=== PATIENT | male | born 1955 | race Caucasian/White ===

== ENCOUNTER → 2016-07-16 | Outpatient (CLI) | payer BC ==
[2016-07-16 09:57] LABS: APPEARANCE,URINE CLEAR; BILIRUBIN,URINE NEGATIVE (NEGATIVE); GLUCOSE, URINE NEGATIVE (NEGATIVE); KETONES,URINE TRACE mg/dL (NEGATIVE); LEUKOCYTE ESTERASE,URINE NEGATIVE (NEGATIVE); NITRITE,URINE NEGATIVE (NEGATIVE); PROTEIN,URINE NEGATIVE (NEGATIVE); URINE SPECIFIC GRAVITY 1.013; UROBILINOGEN,URINE NEGATIVE mg/dL (<2.0)
[2016-07-16 09:59] LABS: ABSOLUTE BASOPHILS # (AUTO) 0.2 10^3/uL (0.0-0.2); ABSOLUTE EOSINOPHILS # (AUTO) 0.3 10^3/uL (0.0-0.6); ABSOLUTE LYMPHOCYTES (AUTO) 2.1 10^3/uL (0.5-4.7); ABSOLUTE MONOCYTES (AUTO) 0.9 10^3/uL (0.1-1.4); ABSOLUTE NEUT (AUTO) 4.1 10^3/uL (1.7-8.2); EOSINOPHILS % (AUTO) 4.4 % (0-6); HEMATOCRIT 45.3 % (37.9-51.0); HEMOGLOBIN 14.9 g/dL (13.5-17.0); HGB HCT DIFFERENCE -0.6; LYMPHOCYTES % (AUTO) 27.2 % (13-45); MEAN CORPUSCULAR HEMOGLOBIN 30.5 pg (27.0-33.4); MEAN CORPUSCULAR VOLUME 93 fl (80-97); MONOCYTES % (AUTO) 12.1 % (3-13); RED CELL DISTRIBUTION WIDTH 13.3 % (11.5-14.0); SEGMENTED NEUTROPHILS % (AUTO) 54.3 % (42-78); WHITE BLOOD COUNT 7.6 10^3/uL (4.0-10.5)
[2016-07-16 10:25] LABS: ALANINE AMINOTRANSFERASE 41 U/L (21-72); ALBUMIN 4.4 g/dL (3.5-5.0); ALKALINE PHOSPHATASE 71 U/L (38-126); ANION GAP 11 (5-19); ASPARTATE AMINO TRANSFERASE 26 U/L (17-59); BILIRUBIN,TOTAL 0.5 mg/dL (0.2-1.3); BLOOD UREA NITROGEN 17 mg/dL (7-20); CALCIUM 9.7 mg/dL (8.4-10.2); CARBON DIOXIDE 27 mmol/L (22-30); CHLORIDE 104 mmol/L (98-107); CHOLESTEROL 212.62 mg/dL (0-200); CREATININE RESULT 0.83 mg/dL (0.52-1.25); Direct HDL 51 mg/dL (>40); GLUCOSE 113 mg/dL (75-110); POTASSIUM 5.1 mmol/L (3.6-5.0); SODIUM 141.9 mmol/L (137-145); TOTAL PROTEIN 7.2 g/dL (6.3-8.2); TRIGLYCERIDES 109 mg/dL (<150)
[2016-07-16 10:36] LABS: DIRECT LDL 146 mg/dL (<100); ERYTHROCYTE SEDIMENTATION RATE 13 mm/hr (0-20)
[2016-07-16 10:37] LABS: PROTHROMBIN TIME 12.3 SEC (11.4-15.4)
== END ==
LOC: OD 08:50
DX: R06.02 Shortness of breath (principal); F17.219 Nicotine dependence, cigarettes, with unspecified nicotine-induced disorders; F17.210 Nicotine dependence, cigarettes, uncomplicated; F04 Amnestic disorder due to known physiological condition; Z79.899 Other long term (current) drug therapy; R53.83 Other fatigue
CPT/HCPCS: 36415; 71020; 80053; 80061; 81001; 82607; 83036; 84153; 84425; 84443; 85025; 85610; 85652; 86038; 86592; 86787

== ENCOUNTER → 2018-10-02 | Outpatient (CLI) | payer BC ==
[2018-10-02 08:28] LABS: HEMATOCRIT 40.4 % (37.9-51.0); HEMOGLOBIN 13.5 g/dL (13.5-17.0); MEAN CORPUSCULAR HEMOGLOBIN 29.3 pg (27.0-33.4); MEAN CORPUSCULAR HGB CONC 33.4 g/dL (32.0-36.0); MEAN CORPUSCULAR VOLUME 88 fl (80-97); PLATELET COUNT 531 10^3/uL (150-450); RED BLOOD COUNT 4.61 10^6/uL (4.35-5.55); RED CELL DISTRIBUTION WIDTH 14.5 % (11.5-14.0)
[2018-10-02 08:38] LABS: ALANINE AMINOTRANSFERASE 42 U/L (21-72); ALBUMIN 4.3 g/dL (3.5-5.0); ALKALINE PHOSPHATASE 153 U/L (38-126); ANION GAP 11 (5-19); ASPARTATE AMINO TRANSFERASE 29 U/L (17-59); BILIRUBIN,DIRECT 0.3 mg/dL (0.0-0.4); BILIRUBIN,TOTAL 0.4 mg/dL (0.2-1.3); BLOOD UREA NITROGEN 13 mg/dL (7-20); CALCIUM 10.5 mg/dL (8.4-10.2); CARBON DIOXIDE 25 mmol/L (22-30); CHLORIDE 103 mmol/L (98-107); GLUCOSE 119 mg/dL (75-110); POTASSIUM 4.6 mmol/L (3.6-5.0); SODIUM 139.4 mmol/L (137-145); TOTAL PROTEIN 7.8 g/dL (6.3-8.2)
== END ==
LOC: OD 07:38
PROVIDERS: ATTEND Internal Medicine
DX: N39.0 Urinary tract infection, site not specified (principal); D64.9 Anemia, unspecified; R10.9 Unspecified abdominal pain
CPT/HCPCS: 36415; 80053; 85027; 87086

== ENCOUNTER → 2018-10-04 | Outpatient (CLI) | payer BC ==
--- NOTE | 2018-10-04 11:34 | RADIOLOGY REPORT (SQ) ---
EXAM DESCRIPTION: CT ABD/PELVIS NO ORAL OR IV COMPLETED DATE/TIME: 10/04/2018 10:06 am REASON FOR STUDY: RENAL STONE PROTOCOL. KIDNEY STONES (N20.0) N20.0 CALCULUS OF KIDNEY COMPARISON: None. TECHNIQUE: CT scan of the abdomen and pelvis performed without intravenous or oral contrast. Images reviewed with lung, soft tissue, and bone windows. Reconstructed coronal and sagittal MPR images revi ewed. All images stored on PACS. All CT scanners at this facility use dose modulation, iterative reconstruction, and/or weight based d osing when appropriate to reduce radiation dose to as low as reasonably achievable (ALARA). [facility]: Dose Right [facility]: CareDose [facility]: Dose Right [facility]: Teradose 4D [facility]: [employer] RADIATION DOSE: CT Rad equipment meets quality standard of care and radiation dose reduction techniq ues were employed. CTDIvol: 8.9 mGy. DLP: 472 mGy-cm.mGy. LIMITATIONS: None. FINDINGS: LOWER CHEST: Several pulmonary nodules in the right lower lung, the largest about 6 mm sarah ge 2. NON-CONTRASTED LIVER, SPLEEN, ADRENALS: Evaluation limited by lack of IV contrast. No identified sign ificant masses. PANCREAS: No masses. No peripancreatic inflammatory changes. GALLBLADDER: No identified stones by CT criteria. No inflammatory changes to suggest cholecystitis. RIGHT KIDNEY AND URETER: No suspicious masses. Assessment limited by lack of IV contrast. No signif icant calcifications. No hydronephrosis or hydroureter. LEFT KIDNEY AND URETER: No suspicious masses. Assessment limited by lack of IV contrast. No signifi cant calcifications. No hydronephrosis or hydroureter. AORTA AND RETROPERITONEUM: No aneurysm. No retroperitoneal masses or adenopathy. BOWEL AND PERITONEAL CAVITY: No obvious masses or inflammatory changes. No free fluid. APPENDIX: Normal. PELVIS, BLADDER, AND ABDOMINAL WALL:No abnormal masses. No free fluid. Bladder normal. BONES: No significant findings. OTHER: No other significant finding. IMPRESSION: 1. No acute findings in the abdomen or pelvis. 2. Incidental pulmonary nodules. Dedicated chest CT follow-up is recommended. COMMENT: Quality ID # 436: Final reports with documentation of one or more dose reduction techniques (e.g., Automated exposure control, adjustment of the mA and/or kV according to patient size, use of iterative reconstruction technique) TECHNICAL DOCUMENTATION: JOB ID: [id number] [employer]- All Rights Reserved Reading location - IP/workstation name: [email or web address]
== END ==
LOC: RAD 09:32
PROVIDERS: ATTEND Internal Medicine
DX: N20.0 Calculus of kidney (principal); R91.8 Other nonspecific abnormal finding of lung field
CPT/HCPCS: 74176

== ENCOUNTER 2018-10-12 09:04 | Day surgery (SDC) | payer BC ==
[2018-10-12 10:24] LABS: HEMATOCRIT 38.8 % (37.9-51.0); HEMOGLOBIN 12.7 g/dL (13.5-17.0); MEAN CORPUSCULAR HEMOGLOBIN 28.7 pg (27.0-33.4); MEAN CORPUSCULAR HGB CONC 32.7 g/dL (32.0-36.0); MEAN CORPUSCULAR VOLUME 88 fl (80-97); PLATELET COUNT 547 10^3/uL (150-450); RED BLOOD COUNT 4.43 10^6/uL (4.35-5.55); RED CELL DISTRIBUTION WIDTH 14.5 % (11.5-14.0); WHITE BLOOD COUNT 26.8 10^3/uL (4.0-10.5)
[2018-10-12 10:30] LABS: INTERNATIONAL RATION (INR) 0.96; PROTHROMBIN TIME 13.3 SEC (11.4-15.4)
[2018-10-12 10:31] LABS: PARTIAL THROMBOPLASTIN TIME 30.6 SEC (23.5-35.8)
[2018-10-12 10:49] LABS: BLOOD UREA NITROGEN 11 mg/dL (7-20)
[2018-10-12 11:30] LABS: ABSOLUTE LYMPHOCYTES# (MANUAL) 1.6 10^3/uL (0.5-4.7); ABSOLUTE MONOCYTES # (MANUAL) 0.5 10^3/uL (0.1-1.4); ABSOLUTE NEUTROPHILS# (MANUAL) 23.6 10^3/uL (1.7-8.2); BASOPHILS % (MANUAL) 0 % (0-2); EOSINOPHILS % (MANUAL) 4 % (0-6); LYMPHOCYTES % (MANUAL) 6 % (13-45); MONOCYTES % (MANUAL) 2 % (3-13); SEGMENTED NEUTROPHILS % (MAN) 88 % (42-78); TOTAL CELLS COUNTED 100
[2018-10-12 11:35] LABS: ANISOCYTOSIS SLIGHT
[2018-10-12 11:38] LABS: PLATELET COMMENT INCREASED
[2018-10-12] MEDS ORDERED: MIDAZOLAM 2 MG/2 ML INJ ONE (11:48)
[2018-10-12] MEDS ORDERED: FENTANYL CITRATE INJ/PF 100 MCG/2 ML AMPUL ONE (11:49)
--- NOTE | 2018-10-12 13:08 | RADIOLOGY REPORT (SQ) ---
EXAM DESCRIPTION: CHEST SINGLE VIEW COMPLETED DATE/TIME: 10/12/2018 12:48 pm REASON FOR STUDY: LUNG CA - POST BIOPSY COMPARISON: Chest CT 10/12/2018 EXAM PARAMETERS: NUMBER OF VIEWS: One view. TECHNIQUE: Single frontal radiographic view of the chest acquired. RADIATION DOSE: NA LIMITATIONS: None. FINDINGS: LUNGS AND PLEURA: Short interval stability re- right upper lobe mass. No large pleural ef fusion. No pneumothorax. MEDIASTINUM AND HILAR STRUCTURES: Stable prominence of the superior mediastinum. HEART AND VASCULAR STRUCTURES: Heart normal in size. Normal vasculature. BONES: No acute findings. HARDWARE: None in the chest. OTHER: No other significant finding. IMPRESSION: No evidence of pneumothorax status post pulmonary biopsy. Stable radiographic appearanc e of the chest. TECHNICAL DOCUMENTATION: JOB ID: [id number] [employer]- All Rights Reserved Reading location - IP/workstation name: [email or web address]
--- NOTE | 2018-10-12 13:08 | RADIOLOGY REPORT (SQ) ---
EXAM DESCRIPTION: CT BIOPSY LUNG/MEDIASTINUM; CT NEEDLE PLACEMENT COMPLETED DATE/TIME: 10/12/2018 12:44 pm; 10/12/2018 12:43 pm REASON FOR STUDY: LUNG CANCER; LUNG CANCER, LUNG BIOPSY C34.11 MALIGNANT NEOPLASM OF UPPER LOBE, RI GHT BRONCHUS OR L COMPARISON: CT chest with IV contrast 10/12/2018 TECHNIQUE: CT guided biopsy of the right upper lobe lung mass performed with conscious sedation. CT Fluoroscopy Time: 4.[address] scanners at this facility use dose modulation, iterative reconstruction, and/or weight based d osing when appropriate to reduce radiation dose to as low as reasonably achievable (ALARA). [facility]: Dose Right [facility]: CareDose [facility]: Dose Right [facility]: Teradose 4D [facility]: [employer] RADIATION DOSE: mGy. FINDINGS: After obtaining informed consent and explaining the risks and benefits of conscious sedati on,the patient agreed to the procedure. Prior to the procedure, a time out was performed to verify th e patient's identity and planned procedure. IV sedation was administered and physician direction by the registered nurse using 1 milligrams of Ve rsed and 75 micrograms of fentanyl, for conscious sedation. Physiologic monitoring was provided befor e, during, and after sedation. The total sedation time was 30 minutes. Documentation face to face time, the performing proceduralist, spent monitoring the patient: [address] scanning was performed to localize the percutaneous site for the biopsy approach. After sterile skin prep and local lidocaine for skin and deep tissue anesthesia, a coaxial biopsy nee dle was used to obtain multiple cores of tissue. Postprocedure limited chest CT demonstrated trace pl eural space air along the lateral edge of the lung nodule which was asymptomatic. Vital signs stable . The biopsy tissue was submitted to the lab in formalin. There were no immediate complications. Pathology is pending at the time of dictation. IMPRESSION: CT GUIDED BIOPSY OF THE LARGE RIGHT UPPER LOBE MASS PERFORMED, PATHOLOGY PENDING. CT FLUOROSCOPY IV CONSCIOUS SEDATION COMMENT: Quality ID 145: Final reports for procedures using fluoroscopy that document radiation exp osure indices, or exposure time and number of fluorographic images (if radiation exposure indices are not available) Patient medication list reviewed: Yes- Quality ID# [id number]:Eligible professional attests to documenting i n the medical record they obtained, updated, or reviewed the patient's current medications.. TECHNICAL DOCUMENTATION: JOB ID: [id number] Quality ID# 436: Final reports with documentation of one or more dose reduction techniques (e.g., Aut omated exposure control, adjustment of the mA and/or kV according to patient size, use of iterative r econstruction technique) 2010 [employer]- All Rights Reserved Reading location - IP/workstation name: [email or web address]
[2018-10-12 15:25] VITALS: BP 148/88
--- NOTE | 2018-10-12 15:30 | RADIOLOGY REPORT (SQ) ---
EXAM DESCRIPTION: CT CHEST WITH COMPLETED DATE/TIME: 10/12/2018 12:06 pm REASON FOR STUDY: LUNG CANCER C34.11 MALIGNANT NEOPLASM OF UPPER LOBE, RIGHT BRONCHUS OR L COMPARISON: None. TECHNIQUE: CT scan of the chest performed using helical scanning technique with dynamic intravenous contrast injection. Images reviewed with lung, soft tissue and bone windows. Reconstructed coronal and sagittal MPR and MIP images reviewed. All images stored on PACS. All CT scanners at this facility use dose modulation, iterative reconstruction, and/or weight based d osing when appropriate to reduce radiation dose to as low as reasonably achievable (ALARA). [facility]: Dose Right [facility]: CareDose [facility]: Dose Right [facility]: Teradose 4D [facility]: [employer] CONTRAST TYPE AND DOSE: contrast/concentration: Isovue 350.00 mg/ml; Total Contrast Delivered: 80.0 ml; Total Saline Delivered: 55.0 ml RENAL FUNCTION: BUN 11 creatinine 0.62 RADIATION DOSE: CT Rad equipment meets quality standard of care and radiation dose reduction techniq ues were employed. CTDIvol: 7.6 mGy. DLP: 327 mGy-cm. . LIMITATIONS: None. FINDINGS: LUNGS AND PLEURA: Small right pleural effusion. 54 mm mass that is adjacent to the pleura l surface in the right upper lobe. 8 mm pulmonary mass on image 83 in the right lung. HILAR AND MEDIASTINAL STRUCTURES: Marked mediastinal adenopathy, predominantly upper mediastinal rishi opathy. Right hilar adenopathy. HEART AND VASCULAR STRUCTURES: No aneurysm or dissection. No central pulmonary emboli. No pericardi al effusion. HARDWARE: None in the chest. UPPER ABDOMEN: No significant findings. Limited exam. THYROID AND OTHER SOFT TISSUES: 2 cm low-density lesion in the right lobe of the thyroid. BONES: Lytic lesion in the posterolateral aspect of the T9 vertebra. There is also involvement of th e right lamina and right transverse process at T9. There is masslike density that extends into the t horacic spinal canal and is extra spinal. There is a smaller low-density lesion in the T12 vertebral body on the right. This may represent a hemangioma. OTHER: No other significant finding. IMPRESSION: Large right pulmonary mass with a smaller lesion and with extensive upper mediastinal ad enopathy and right hilar adenopathy. There is metastatic disease involving the T9 vertebral body and posterior elements on the right. TECHNICAL DOCUMENTATION: JOB ID: [id number] Quality ID # 436: Final reports with documentation of one or more dose reduction techniques (e.g., Au tomated exposure control, adjustment of the mA and/or kV according to patient size, use of iterative reconstruction technique) 2010 [employer]- All Rights Reserved Reading location - IP/workstation name: [email or web address]
--- NOTE | 2018-10-12 15:56 | RADIOLOGY REPORT (SQ) ---
EXAM DESCRIPTION: CHEST SINGLE VIEW COMPLETED DATE/TIME: 10/12/2018 3:02 pm REASON FOR STUDY: LUNG CA - POST BIOPSY (2 HR FILM) COMPARISON: CT Lung biopsy, 10/12/2018 EXAM PARAMETERS: NUMBER OF VIEWS: One view. TECHNIQUE: Single frontal radiographic view of the chest acquired. RADIATION DOSE: NA LIMITATIONS: None. FINDINGS: LUNGS AND PLEURA: No pneumothorax post right lung biopsy 2 hours post procedure. Stable right upper lobe mass. No acute infiltrates pleural effusions or pneumothorax. MEDIASTINUM AND HILAR STRUCTURES: Stable right paratracheal adenopathy HEART AND VASCULAR STRUCTURES: Heart normal in size. Normal vasculature. BONES: No acute findings. HARDWARE: None in the chest. OTHER: No other significant finding. IMPRESSION: No pneumothorax post right lung biopsy. TECHNICAL DOCUMENTATION: JOB ID: [id number] [employer]- All Rights Reserved Reading location - IP/workstation name: [email or web address]
== END 2018-10-12 15:00 | disposition home or self-care (01) ==
LOC: RAD 09:04 → EDSTATUS 09:45 → RAD 15:00
PROVIDERS: ATTEND Internal Medicine
DX: C34.11 Malignant neoplasm of upper lobe, right bronchus or lung (principal); C79.9 Secondary malignant neoplasm of unspecified site; C79.51 Secondary malignant neoplasm of bone
CPT/HCPCS: 36415; 84520; 82565; 85025; 85610; 85730; 88342 ×2; 88341 ×2; 88305 ×2; 71045; 71260; 77012; 32405; J2250; J3010

== ENCOUNTER 2018-11-08 11:37 | Inpatient (IN) | payer BC ==
[2018-11-08] MEDS ORDERED: DEXAMETHASONE SOD PHOS INJ 10 MG/1 ML VIAL IV ONE (13:06)
[2018-11-08 13:26] LABS: AMORPHOUS SEDIMENT,URINE TRACE /HPF; APPEARANCE,URINE SLIGHTLY-CLOUDY; BILIRUBIN,URINE NEGATIVE (NEGATIVE); COLOR,URINE YELLOW; GLUCOSE, URINE NEGATIVE (NEGATIVE); KETONES,URINE NEGATIVE (NEGATIVE); LEUKOCYTE ESTERASE,URINE NEGATIVE (NEGATIVE); NITRITE,URINE NEGATIVE (NEGATIVE); PROTEIN,URINE NEGATIVE (NEGATIVE); URINE SPECIFIC GRAVITY 1.017; UROBILINOGEN,URINE NEGATIVE mg/dL (<2.0)
[2018-11-08 15:33] LABS: INTERNATIONAL RATION (INR) 0.97; PARTIAL THROMBOPLASTIN TIME 27.1 SEC (23.5-35.8); PROTHROMBIN TIME 13.4 SEC (11.4-15.4)
[2018-11-08 15:35] LABS: HEMATOCRIT 42.4 % (37.9-51.0); HEMOGLOBIN 13.7 g/dL (13.5-17.0); MEAN CORPUSCULAR HEMOGLOBIN 28.4 pg (27.0-33.4); MEAN CORPUSCULAR HGB CONC 32.4 g/dL (32.0-36.0); MEAN CORPUSCULAR VOLUME 88 fl (80-97); PLATELET COUNT 525 10^3/uL (150-450); RED BLOOD COUNT 4.84 10^6/uL (4.35-5.55); RED CELL DISTRIBUTION WIDTH 15.1 % (11.5-14.0)
[2018-11-08 15:48] LABS: ALANINE AMINOTRANSFERASE 61 U/L (21-72); ALBUMIN 4.1 g/dL (3.5-5.0); ALKALINE PHOSPHATASE 245 U/L (38-126); ANION GAP 14 (5-19); ASPARTATE AMINO TRANSFERASE 28 U/L (17-59); BILIRUBIN,DIRECT 0.3 mg/dL (0.0-0.4); BILIRUBIN,TOTAL 0.6 mg/dL (0.2-1.3); BLOOD UREA NITROGEN 26 mg/dL (7-20); CALCIUM 11.6 mg/dL (8.4-10.2); CARBON DIOXIDE 28 mmol/L (22-30); CHLORIDE 98 mmol/L (98-107); GLUCOSE 121 mg/dL (75-110); POTASSIUM 4.3 mmol/L (3.6-5.0); SODIUM 140.3 mmol/L (137-145); TOTAL PROTEIN 7.6 g/dL (6.3-8.2)
[2018-11-08 16:22] LABS: ABSOLUTE LYMPHOCYTES# (MANUAL) 2.8 10^3/uL (0.5-4.7); ABSOLUTE MONOCYTES # (MANUAL) 3.3 10^3/uL (0.1-1.4); ABSOLUTE NEUTROPHILS# (MANUAL) 49.1 10^3/uL (1.7-8.2); BASOPHILS % (MANUAL) 0 % (0-2); EOSINOPHILS % (MANUAL) 0 % (0-6); LYMPHOCYTES % (MANUAL) 5 % (13-45); MONOCYTES % (MANUAL) 6 % (3-13); SEGMENTED NEUTROPHILS % (MAN) 89 % (42-78); TOTAL CELLS COUNTED 100
[2018-11-08 16:23] LABS: ANISOCYTOSIS SLIGHT; PLATELET CLUMPS PRESENT; PLATELET COMMENT ADEQUATE; TOXIC GRANULATION 2+; TOXIC VACUOLATION PRESENT
[2018-11-08 16:26] LABS: WHITE BLOOD COUNT 55.2 10^3/uL (4.0-10.5)
[2018-11-08] MEDS ORDERED: NORMAL SALINE 1000 ML 1,000 ML IV ONE (17:33)
--- NOTE | 2018-11-08 17:42 | ER Document Report ---
ED General - General Chief Complaint: Weakness Stated Complaint: WEAKNESS Time Seen by Provider: 11/08/18 12:38 TRAVEL OUTSIDE OF THE [place] IN LAST 30 DAYS: No - HPI Notes: Patient is a 63-year-old gentleman who presents to the emergency department for evaluation. Over the last 3 days he is developed decreased sensation and movement in his legs. He has a history of bronchogenic carcinoma, with metasta sis and epidural tumor noted from T8-T10. He states that over the last several days has been able to walk. He also states he is been having difficulty urinating. He is supposed to have radiation, but unfortunately our radiation facilities are down. He has been on high-dose steroids for the last several days. - Related Data Allergies/Adverse Reactions: No Known Allergies Allergy (Unverified 10/12/18 09:23) Past Medical History - General Information source: Patient - Social History Smoking Status: Former Smoker Family History: Reviewed & Not Pertinent - Past Medical History Cardiac Medical History: Denies: Hx Coronary Artery Disease, Hx Heart Attack, Hx Hypertension Pulmonary Medical History: Denies: Hx Asthma, Hx Bronchitis, Hx COPD, Hx Pneumonia Neurological Medical History: Denies: Hx Cerebrovascular Accident, Hx Seizures Musculoskeletal Medical History: Denies Hx Arthritis Review of Systems - Review of Systems EENT: No symptoms reported Cardiovascular: No symptoms reported Respiratory: No symptoms reported Gastrointestinal: No symptoms reported Genitourinary: No symptoms reported Musculoskeletal: See HPI Skin: No symptoms reported Neurological/Psychological: No symptoms reported Physical Exam - Vital signs Vitals: Temp 98.2 F 11/08/18 11:40 - Notes Notes: 63-year-old male, appears stated age in no acute distress. Vital signs reviewed, please refer to chart. Head is normocephalic, atraumatic. Pupils equal round, reactive to light. Neck is supple without meningismus. Heart is regular rate and rhythm. Lungs are clear to auscultation bilaterally. Abdomen is soft, nontender, normoactive bowel sounds throughout. Extremities without cyanosis, clubbing. Posterior calves are nontender. Peripheral pulses are equal. Skin is warm and dry. Patient is awake and alert, oriented x3. No gross facial asymmetry. Drink this +5-5 bilateral upper extremities with good sensation. Examination of the lower extremities reveals no obvious deformity. Patient intermittently has what appear to be spasms of the left leg. He has no voluntary motion at all of the left leg. He does have limited flexion and extension at the hip, knee, ankle on the right lower extremity. He has diminished sensation from the knee down on the right lower extremity. He has diminished sensation throughout the entire left leg to light touch. Patellar reflexes are diminished on the left, +2 on the right. Achilles reflexes are +1 bilaterally. Dorsalis pedis pulses 2+. Course - Re-evaluation Re-evalutation: 11/08/18 17:39 Patient presents emergency department for evaluation. 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 He has had progressive weakness of his lower extremities, as well as paresthesias. He requires radiation to shrink this tumor. Unfortunately our facilities for radiation oncology are down at this time. We do not have any prospects of them returning soon. I obtained laboratory investigations. The patient does have a marked leukocytosis. He has been on high-dose steroids. I did verify with this patient's oncologist that he is in fact not on Neupogen. Chest x-ray and blood cultures were obtained. Urinalysis is been unremarkable. The patient's was noted to have urinary retention, Salomon catheter was placed. I spoke with , panel builder at [facility]. The patient had been there recently. Unfortunately they do not have any beds, but he did accept the patient for radiation and further care. I did notify Dr. Casas of these findings, who states that the patient will require radiation, he believes that waiting for transfer is the most appropriate thing at this time. He does agree with obtaining cultures and imaging to verify there is not an infectious source of this patient's leukocytosis. 11/09/18 12:52 Please see addendum and providers note. In short radiation oncology facilities became available here today. Patient developed cough overnight. Given his leukocytosis, elevated heart rate, I am concerned about the possibility of hospital-acquired pneumonia. He was treated with cefepime and vancomycin. He was sent for radiation oncology. I spoke with Dr. Casas as well as Dr. Loaiza, the patient will be admitted for further care. - Vital Signs Vital signs: Temp Pulse Resp BP Pulse Ox 97.9 F 23 H 142/96 H 95 11/09/18 08:29 11/09/18 11:00 11/09/18 09:01 11/09/18 11:00 - Laboratory Result Diagrams: 11/08/18 15:05 11/08/18 15:05 Laboratory results interpreted by me: 11/08/18 11/08/18 11/08/18 11:50 15:05 15:05 WBC 55.2 H* RDW 15.1 H Plt Count 525 H Seg Neuts % (Manual) 89 H Lymphocytes % (Manual) 5 L Abs Neuts (Manual) 49.1 H Abs Monocytes (Manual) 3.3 H BUN 26 H Glucose 121 H Calcium 11.6 H Alkaline Phosphatase 245 H Urine Ascorbic Acid 20 H - Diagnostic Test Radiology reviewed: Reports reviewed Discharge - Discharge Clinical Impression: Bilateral leg weakness, Stage IV squamous cell carcinoma of lung, 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
--- NOTE | 2018-11-08 18:03 | RADIOLOGY REPORT (SQ) ---
EXAM DESCRIPTION: CHEST SINGLE VIEW COMPLETED DATE/TIME: 11/08/2018 5:56 pm REASON FOR STUDY: leukocytosis COMPARISON: 10/12/2018 EXAM PARAMETERS: NUMBER OF VIEWS: One view. TECHNIQUE: Single frontal radiographic view of the chest acquired. RADIATION DOSE: NA LIMITATIONS: None. FINDINGS: LUNGS AND PLEURA: Right lung mass and right paratracheal adenopathy stable. Left lung is clear. MEDIASTINUM AND HILAR STRUCTURES: No masses. Contour normal. HEART AND VASCULAR STRUCTURES: Heart normal in size. Normal vasculature. BONES: No acute findings. HARDWARE: None in the chest. OTHER: No other significant finding. IMPRESSION: Stable masses. No acute findings in the chest. TECHNICAL DOCUMENTATION: JOB ID: [id number] [employer]- All Rights Reserved Reading location - IP/workstation name: [email or web address]
[2018-11-09] MEDS ORDERED: LORAZEPAM INJ 2 MG/1 ML VIAL IV ONE (00:56)
[2018-11-09] MEDS ORDERED: HALOPERIDOL LACTATE INJ 5 MG/1 ML VIAL IM ONE (03:29)
--- NOTE | 2018-11-09 03:43 | ER Document Report ---
Doctor's Note Notes: 11/09/18 03:41 Patient became acutely agitated. He has ripped out 3 IVs total. 0.5 mg of Ativan was given without improvement. Patient given Haldol 2 mg IM. Patient now attempting to rip out his Salomon catheter. Soft restraints will be placed.
[2018-11-09] MEDS ORDERED: CEFEPIME 2 GM/D5W RTU 2 GM/50 ML RTUPB IV ONE (09:19)
[2018-11-09] MEDS ORDERED: VANCOMYCIN HCL INJ 1000 MG VIAL IV ONE (09:19)
--- NOTE | 2018-11-09 09:23 | ER Document Report ---
Doctor's Note Notes: 11/09/18 09:21 Patient seen and examined. I reviewed vital signs and charting from overnight. The patient was intermittently confused throughout the night. He was disoriented to person, place, and time. His heart rate remained elevated despite some IV fluids and taking in adequate p.o. The patient this morning denies any pain. He developed a cough overnight that was not present yesterday. This was verified with the , who states that he was not coughing until overnight. Physical exam reveals a frail-appearing 63-year-old male in no acute distress. He has rhonchorous cough. Head is normal cephalic and atraumatic. Pupils are equal and round, reactive to light. No nuchal rigidity. Heart is regular rate and rhythm, breath sounds are coarse but no wheezes, rales, rhonchi noted. Patient continues to have profound weakness to the bilateral lower extremities, patellar and Achilles reflexes are nearly absent at this point. Sensation continues to be diminished in the right lower extremity inferior to the knee. He does continue to have pressure sensation in the entire left lower extremity. Assessment: Despite a normal chest x-ray yesterday, I am concerned about the possibility of hospital-acquired pneumonia in this patient. He was recently hospitalized and violent. His white count is markedly up, cultures remain negative at this time. Secondary to his development of this new symptoms, we will go ahead and treat with cefepime and vancomycin. Lack of objective x-ray findings were explained to the patient's . She is in agreement with treatment. We are still awaiting transfer divided. Unfortunately I am notified that radiation facilities are still down here. We will continue to follow. 11/09/18 12:51 I was contacted by radiation oncology, notified that we were capable of radiation at this time. I spoke to the radiation oncologist, the patient was scanned and set up for radiation later on today. He continues to be mildly tachycardic. My concern is still hospital-acquired pneumonia. I spoke with Dr. Casas, who agrees that inpatient care is indicated at this time. I spoke with Dr. Loaiza, who happily excepted the patient.
[2018-11-09] MEDS ORDERED: DEXAMETHASONE SOD PHOS INJ 10 MG/1 ML VIAL IV ONE (12:45)
[2018-11-09 14:34] LABS: PATH REVIEW PATHOLOGIST REVIEWED
[2018-11-09] MEDS ORDERED: MAG HYDROX/AL HYDROX/SIMETH SUSP 30 ML UDCUP PO PRN (14:52)
[2018-11-09] MEDS ORDERED: ONDANSETRON HCL INJ/PF 4 MG/2 ML SDV IV PRN (14:52)
[2018-11-09] MEDS ORDERED: ONDANSETRON 4 MG TAB.RAPDIS PO PRN (14:52)
[2018-11-09] MEDS ORDERED: MAGNESIUM HYDROXIDE SUSP 30 ML UDCUP PO PRN (14:52)
[2018-11-09] MEDS ORDERED: IPRATROPIUM/ALBUTEROL 0.5-2.5 MG/3 ML AMPUL NEB PRN (14:52)
[2018-11-09] MEDS ORDERED: PROMETHAZINE HCL INJ 25 MG/1 ML VIAL IV PRN (15:05)
[2018-11-09] MEDS ORDERED: PROMETHAZINE HCL 25 MG TABLET PO PRN (15:05)
[2018-11-09] MEDS ORDERED: GUAIFENESIN/D-METHORPHAN (200-20 MG) SYRUP 10 ML PO PRN (15:07)
[2018-11-09] MEDS ORDERED: BISACODYL 10 MG SUPP.RECT PR PRN (15:09)
[2018-11-09] MEDS ORDERED: VANCOMYCIN HCL 0 MG in DEXTROSE 5%-WATER 250 ML IV NR (15:15)
[2018-11-09] MEDS: DOCUSATE SODIUM 100 MG CAPSULE PO SCH (17:53)
[2018-11-09] MEDS: TAMSULOSIN HCL 0.4 MG CAP.SR.24H PO SCH (17:53)
[2018-11-09] MEDS: FENTANYL 50 MCG/HR PATCH.TD72 TD SCH (17:53)
[2018-11-09] MEDS: DRONABINOL 2.5 MG CAPSULE PO SCH (17:53)
--- NOTE | 2018-11-09 18:07 | PDOC H&P ---
History of Present Illness Admission Date/PCP: 11/09/18 12:59 Patient complains of: Congested cough with dyspnea. Underlying metastatic lung and bone cancer with cord compression and inability to ambulate History of Present Illness: LUANN NORTON JR is a 63 year old male Past Medical History Cardiac Medical History: Denies: Coronary Artery Disease, Myocardial Infarction, Hypertension Pulmonary Medical History: Denies: Asthma, Bronchitis, Chronic Obstructive Pulmonary Disease (COPD), P neumonia Neurological Medical History: Denies: Seizures Renal/ Medical History: Reports: Other - Prostatic hypertrophy with obstructive urinary symptoms Malignancy Medical History: Reports: Bone Cancer, Lung Cancer Musculoskeltal Medical History: Denies: Arthritis Psychiatric Medical History: Denies: Alcohol Dependency, Substance Abuse, Tobacco Dependency Traumatic Medical History: Reports: None Hematology: Denies: Anemia Infectious Medical History: Reports: None Past Surgical History Past Surgical History: Reports: Other - Tumor biopsies Social History Information Source: Patient, Relative, [facility] Records Lives with: Spouse/Significant other Smoking Status: Former Smoker Frequency of Alcohol Use: None Hx Recreational Drug Use: No Hx Prescription Drug Abuse: No - Advance Directive Resuscitation Status: Full Code Surrogate healthcare decision maker:: No formal documentation in place. We did discuss the fact that as his , by law she would be the first line decision maker. I will discuss the possibility of completing a healthcare proxy document during this admission. Family History Family History: Malignancy, Other - [id number] cirrhosis Parental Family History Reviewed: Yes Children Family History Reviewed: Yes Sibling(s) Family History Reviewed.: Yes Medication/Allergy Home Medications: Dexamethasone [Decadron 4 Mg Tablet] 4 mg PO TID 11/09/18 Dronabinol 5 mg PO BID 11/09/18 Fentanyl [Duragesic 50 Mcg/Hr Transdermal Patch] 1 each TD Q3D 11/09/18 Hydromorphone HCl [Dilaudid] 4 mg PO Q6HP PRN 11/09/18 Ibuprofen [Motrin 800 mg Tablet] 800 mg PO DAILYP PRN 11/09/18 Lidocaine [Ztlido] 1 each TP DAILY 11/09/18 Multivitamin [Tab-A-Judith (Multiple Vitamin) Tablet] 1 tab PO DAILY 11/09/18 Tamsulosin HCl [Flomax 0.4 mg Cap.sr] 0.4 mg PO DAILY 05/30/19 Allergies/Adverse Reactions: No Known Allergies Allergy (Unverified 10/12/18 09:23) Review of Systems Constitutional: PRESENT: anorexia, fatigue, weakness. ABSENT: headache(s), night sweats Eyes: ABSENT: visual disturbances Ears: ABSENT: hearing changes Nose, Mouth, and Throat: ABSENT: mouth pain, sore throat Cardiovascular: ABSENT: chest pain, edema, palpitations Respiratory: PRESENT: cough - Very congested cough, dyspnea, sputum Gastrointestinal: PRESENT: abdominal pain, constipation - Severe. No bowel movement for approximately 10 days. Genitourinary: PRESENT: difficulty urinating - History of prostatic hypertrophy. ABSENT: dysuria Musculoskeletal: PRESENT: back pain, muscle weakness Integumentary: ABSENT: lesions, pruritus, rash Neurological: PRESENT: abnormal gait - Unable to ambulate, paresthesias, other - Dysesthesia with decreased sensation on legs. ABSENT: confusion, memory loss, syncope, tremor(s) Psychiatric: ABSENT: anxiety, depression, hallucinations Endocrine: ABSENT: cold intolerance, heat intolerance, polydipsia, polyphagia, polyuria Hematologic/Lymphatic: ABSENT: easy bleeding, easy bruising, lymphadenopathy Physical Exam Vital Signs: Temp Pulse Resp BP Pulse Ox 97.9 F 106 H 18 142/96 H 95 11/09/18 08:29 11/09/18 14:41 11/09/18 14:41 11/09/18 09:01 11/09/18 14:42 Intake & Output 11/08/18 11/09/18 11/10/18 06:59 06:59 06:59 Intake Total 1000 50 Output Total 850 1500 Balance 150 -1450 Weight 79.7 kg General appearance: PRESENT: cooperative, mild distress, well-developed Head exam: PRESENT: atraumatic, normocephalic Eye exam: PRESENT: conjunctiva pink, EOMI. ABSENT: scleral icterus Ear exam: PRESENT: normal external ear exam Mouth exam: PRESENT: dry mucosa, tongue midline Respiratory exam: PRESENT: rhonchi, symmetrical. ABSENT: accessory muscle use, rales, tachypnea, wheezes Cardiovascular exam: PRESENT: +S1, +S2, tachycardia Pulses: PRESENT: normal radial pulses, normal dorsalis pedis pul GI/Abdominal exam: PRESENT: distended - Distended but soft, soft, tenderness - Diffuse nonspecific. ABSENT: guarding Rectal exam: PRESENT: deferred Gentrourinary exam: PRESENT: indwelling catheter Extremities exam: ABSENT: calf tenderness, pedal edema Musculoskeletal exam: PRESENT: normal inspection Neurological exam: PRESENT: alert, awake, oriented to person, oriented to place, oriented to time, oriented to situation, CN II-XII grossly intact, motor sensory deficit - Patient with decreased gross sensation lower extremities versus upper extremities. Unable to elicit patellar reflexes. Despite some spontaneous movement the patient was not able to dorsiflex or plantar flex his feet during this exam. Psychiatric exam: PRESENT: flat affect. ABSENT: agitated, anxious Focused psych exam: ABSENT: delusional, restlessness Skin exam: PRESENT: dry, normal color, warm. ABSENT: mottled, rash Results Laboratory Results: 11/08/18 15:05 11/08/18 15:05 11/08/18 11/08/18 15:05 15:05 WBC 55.2 H* RBC 4.84 Hgb 13.7 Hct 42.4 MCV 88 MCH 28.4 MCHC 32.4 RDW 15.1 H Plt Count 525 H Seg Neutrophils % Not Reportable Lymphocytes % Not Reportable Monocytes % Not Reportable Eosinophils % Not Reportable Basophils % Not Reportable Absolute Neutrophils Not Reportable Absolute Lymphocytes Not Reportable Absolute Monocytes Not Reportable Absolute Eosinophils Not Reportable Absolute Basophils Not Reportable Sodium 140.3 Potassium 4.3 Chloride 98 Carbon Dioxide 28 Anion Gap 14 BUN 26 H Creatinine 0.73 Est GFR ( Amer) > 60 Est GFR (Non-Af Amer) > 60 Glucose 121 H Calcium 11.6 H Total Bilirubin 0.6 AST 28 ALT 61 Alkaline Phosphatase 245 H Total Protein 7.6 Albumin 4.1 Impressions: Chest X-Ray 11/08/18 17:35 IMPRESSION: Stable masses. No acute findings in the chest. Assessment and Plan - Diagnosis (1) Hospital-acquired pneumonia Is this a current diagnosis for this admission?: Yes Plan: 11/09/2018-the patient was recently hospitalized. I believe it was for work-up for his malignancies. For this reason he will get broad-spectrum aggressive antibiotic therapy with vancomycin and cefepime. He has a very congested cough. A sputum culture has been requested. He will have guaifenesin long-acting tablet as well as guaifenesin with dextromethorphan as needed. (2) Spinal cord compression due to malignant neoplasm metastatic to spine Is this a current diagnosis for this admission?: Yes Plan: 11/09/2018-the patient had a bone lesion that is compressing the spinal cord. This is because weakness and abnormal sensation in the patient's legs. He has some spontaneous movement but on command he exhibited no plantar or dorsiflexion of the feet. He could feel gross touch but it was muted compared to his upper extremities. I did not try to ambulate the patient but the reports that he is unable to ambulate. We will continue dexamethasone therapy. I have ordered 8 mg IV every 8 hours. In addition I have asked physical therapy to see the patient. He would benefit from at least passive range of motion to avoid contractures and possibly progress based on his response to radiation therapy. (3) Stage IV squamous cell carcinoma of lung Qualifiers: Laterality: right Qualified Code(s): C34.91 - Malignant neoplasm of unspecified part of right bronchus or lung Is this a current diagnosis for this admission?: Yes Plan: 11/09/2018-patient has a right lung mass with adenopathy. Dr. Casas will be seeing the patient. He was slated for radiation therapy. I will defer management to Dr. Casas. He does have adenopathy visible on chest x-ray. Consideration for a postobstructive pneumonia is also given. Broad-spectrum antibiotic therapy should be effective. (4) Bilateral leg weakness Is this a current diagnosis for this admission?: Yes Plan: 11/09/2018-secondary to cord compression. Management as outlined above. (5) Obstipation Is this a current diagnosis for this admission?: Yes Plan: 11/09/2018-the patient reports not having had bowel movement for 1/2 weeks. I will order a KUB film to get a general idea of volume of retained stool. We will start an aggressive regimen including scheduled and as needed medications both laxatives and stool softeners. Unfortunately we do not have medication for opiate-induced constipation on the formulary. This is likely the cause of the patient's decreased appetite with nausea and nonspecific abdominal discomfort. (6) Intractable hiccups Is this a current diagnosis for this admission?: Yes Plan: 11/09/2018-the patient exhibited intractable hiccups. We discussed the potential causes including diaphragm irritation. As there is no one treatment that has p roven extremely effective we will offer a trial of oral Thorazine and once the hiccups subside we can discontinue the medication. - Time Time Spent with patient: 35 or more minutes Medications reviewed and adjusted accordingly: Yes - Inpatient Certification Based on my medical assessment, after consideration of the patient's comorbidities, presenting symptoms, or acuity I expect that the services needed warrant INPATIENT care.: Yes I certify that my determination is in accordance with my understanding of Medicare's requirements for reasonable and necessary INPATIENT services [42 CFR 412.3e].: Yes Medical Necessity: Need for Pain Control, Need for IV Antibiotics, Risk of Complication if Not Cared For in Hospital, Other - Cord compression with diminished mobility Post Hospital Care: D/C Bobbin Winder Documentation
[2018-11-09] MEDS: VANCOMYCIN HCL 1,000 MG in DEXTROSE 5%-WATER 250 ML IV SCH (18:12)
--- NOTE | 2018-11-09 18:48 | RADIOLOGY REPORT (SQ) ---
EXAM DESCRIPTION: KUB/ABDOMEN (SINGLE VIEW) COMPLETED DATE/TIME: 11/09/2018 6:31 pm REASON FOR STUDY: Abdominal pain suspected obstipation COMPARISON: None. NUMBER OF VIEWS: One view. TECHNIQUE: Supine radiographic image of the abdomen acquired. LIMITATIONS: None. FINDINGS: BOWEL GAS PATTERN: Nonobstructive gas pattern. Considerable retained stool from the colon to the splenic flexure. CALCIFICATIONS: No suspicious calcifications. SOFT TISSUES: No gross mass or suggestion of organomegaly. HARDWARE: None in the abdomen. BONES: No acute fracture. No worrisome bone lesions. OTHER: No other significant finding. IMPRESSION: Constipation. TECHNICAL DOCUMENTATION: JOB ID: [id number] [employer]- All Rights Reserved Reading location - IP/workstation name: [email or web address]
[2018-11-09] MEDS: DEXAMETHASONE SOD PHOS INJ 10 MG/1 ML VIAL IV SCH (21:49)
[2018-11-09] MEDS: HEPARIN SOD (PORCINE) 5,000 UNIT/ML 1 ML SYRINGE SUBCUT SCH (21:50)
[2018-11-09] MEDS: GUAIFENESIN 600 MG TABLET.SA PO SCH (21:51)
[2018-11-09] MEDS: CEFEPIME HCL 2 GM in DEXTROSE 5%-WATER 50 ML IV SCH (21:51)
[2018-11-09] MEDS: ACETAMINOPHEN 325 MG TABLET PO PRN (21:52)
[2018-11-09] MEDS ORDERED: CEFEPIME 2 GM/D5W RTU 2 GM/50 ML RTUPB IV SCH (22:00)
[2018-11-10] MEDS: VANCOMYCIN HCL 1,000 MG in DEXTROSE 5%-WATER 250 ML IV SCH ×3 (04:22→17:46)
[2018-11-10] MEDS: PANTOPRAZOLE SODIUM 20 MG TABLET.DR PO SCH (05:42)
[2018-11-10] MEDS: DEXAMETHASONE SOD PHOS INJ 10 MG/1 ML VIAL IV SCH ×3 (05:43→21:08)
[2018-11-10] MEDS: HEPARIN SOD (PORCINE) 5,000 UNIT/ML 1 ML SYRINGE SUBCUT SCH ×3 (05:44→21:07)
[2018-11-10 06:38] LABS: ANION GAP 15 (5-19); BLOOD UREA NITROGEN 25 mg/dL (7-20); CALCIUM 10.6 mg/dL (8.4-10.2); CARBON DIOXIDE 22 mmol/L (22-30); CHLORIDE 100 mmol/L (98-107); GLUCOSE 95 mg/dL (75-110); PHOSPHORUS 4.2 mg/dL (2.5-4.5); POTASSIUM 3.8 mmol/L (3.6-5.0); SODIUM 137.3 mmol/L (137-145)
[2018-11-10 06:43] LABS: HEMATOCRIT 39.6 % (37.9-51.0); HEMOGLOBIN 12.7 g/dL (13.5-17.0); MEAN CORPUSCULAR HEMOGLOBIN 28.4 pg (27.0-33.4); MEAN CORPUSCULAR HGB CONC 32.1 g/dL (32.0-36.0); MEAN CORPUSCULAR VOLUME 89 fl (80-97); PLATELET COUNT 395 10^3/uL (150-450); RED BLOOD COUNT 4.48 10^6/uL (4.35-5.55); RED CELL DISTRIBUTION WIDTH 15.1 % (11.5-14.0)
[2018-11-10 06:46] LABS: ABSOLUTE LYMPHOCYTES# (MANUAL) 2.5 10^3/uL (0.5-4.7); ABSOLUTE NEUTROPHILS# (MANUAL) 45.6 10^3/uL (1.7-8.2); BASOPHILS % (MANUAL) 0 % (0-2); EOSINOPHILS % (MANUAL) 0 % (0-6); LYMPHOCYTES % (MANUAL) 5 % (13-45); MONOCYTES % (MANUAL) 2 % (3-13); MYELOCYTES % (MANUAL) 1 % (0); SEGMENTED NEUTROPHILS % (MAN) 92 % (42-78); TOTAL CELLS COUNTED 100
[2018-11-10 06:47] LABS: ANISOCYTOSIS SLIGHT; BURR CELLS SLIGHT; OVALOCYTES 1+; PLATELET COMMENT ADEQUATE
--- NOTE | 2018-11-10 08:28 | PDOC CONSULTATION ---
Consultation Consult Date: 11/10/18 Attending physician:: GALDINO GUILLAUME Provider Consulted: NAPOLEON DEL RIO Consult reason:: Bilateral lower extremity weakness, spinal metastasis, stage IV lung cancer History of Present Illness Admission Date/PCP: 11/09/18 12:59 Patient complains of: Bilateral lower extremity weakness, pain, immobility History of Present Illness: LUANN NORTON JR is a 63 year old male with known history of stage IV squam ous cell carcinoma of the lung, recently diagnosed with a lung mass as well as bony metastasis, ultimately was found to have a T8/9 vertebral lesion, had bronchial biopsy done that indicated squamous cell carcinoma, he was seen by my office last week and we referred him to radiation. Unfortunately the radiation machine had broken down and he was not able to initiate radiation last week. I offered to refer him to [place] for radiation therapy but patient and family declined and wanted to stay local, had difficulty getting up there. Therefore, we decided on holding on therapy through the weekend, putting them on oral steroids. Unfortunately, he became weaker through the weekend, and came in with immobility, incontinence. He was hypercalcemic, having leukocytosis and elements of postobstructive pneumonia. We were able to get the radiation machine up yesterday and he began spinal radiation yesterday, he also received IV dexamethasone is on IV Dex now. Past Medical History Cardiac Medical History: Denies: Coronary Artery Disease, Myocardial Infarction, Hypertension Pulmonary Medical History: Denies: Asthma, Bronchitis, Chronic Obstructive Pulmonary Disease (COPD), Pneumonia Neurological Medical History: Denies: Seizures Renal/ Medical History: Reports: Other - Prostatic hypertrophy with obstructive urinary symptoms Malignancy Medical History: Reports: Bone Cancer, Lung Cancer Musculoskeltal Medical History: Denies: Arthritis Psychiatric Medical History: Denies: Alcohol Dependency, Substance Abuse, Tobacco Dependency Traumatic Medical History: Reports: None Hematology: Denies: Anemia Infectious Medical History: Reports: None Past Surgical History Past Surgical History: Reports: Other - Tumor biopsies Social History Lives with: Spouse/Significant other Smoking Status: Former Smoker Cigarettes Packs Per Day: 0.5 Last Time Smoked: 11/05/2018 Frequency of Alcohol Use: None Hx Recreational Drug Use: No Drugs: Marijuana Hx Prescription Drug Abuse: No - Advance Directive Resuscitation Status: Full Code Family History Family History: Malignancy, Other - Zvi-ejrvymm-cdzseeg cirrhosis Parental Family History Reviewed: Yes Children Family History Reviewed: Yes Sibling(s) Family History Reviewed.: Yes Medication/Allergy Home Medications: Dexamethasone [Decadron 4 Mg Tablet] 4 mg PO TID 11/09/18 Dronabinol 5 mg PO BID 11/09/18 Fentanyl [Duragesic 50 Mcg/Hr Transdermal Patch] 1 each TD Q3D 11/09/18 Hydromorphone HCl [Dilaudid] 4 mg PO Q6HP PRN 11/09/18 Ibuprofen [Motrin 800 mg Tablet] 800 mg PO DAILYP PRN 11/09/18 Lidocaine [Ztlido] 1 each TP DAILY 11/09/18 Multivitamin [Tab-A-Judith (Multiple Vitamin) Tablet] 1 tab PO DAILY 11/09/18 Tamsulosin HCl [Flomax 0.4 mg Cap.sr] 0.4 mg PO DAILY 11/09/18 Allergies/Adverse Reactions: No Known Allergies Allergy (Unverified 10/12/18 09:23) Review of Systems Constitutional: ABSENT: chills, fever(s), headache(s), weight gain, weight loss Eyes: ABSENT: visual disturbances Ears: ABSENT: hearing changes Cardiovascular: ABSENT: chest pain, dyspnea on exertion, edema, orthropnea, palpitations Respiratory: ABSENT: cough, hemoptysis Gastrointestinal: ABSENT: abdominal pain, constipation, diarrhea, hematemesis, hematochezia, nausea, vomiting Genitourinary: ABSENT: dysuria, hematuria Musculoskeletal: ABSENT: joint swelling Integumentary: ABSENT: rash, wounds Neurological: ABSENT: abnormal gait, abnormal speech, confusion, dizziness, focal weakness, syncope Psychiatric: ABSENT: anxiety, depression, homidical ideation, suicidal ideation Endocrine: ABSENT: cold intolerance, heat intolerance, polydipsia, polyuria Hematologic/Lymphatic: ABSENT: easy bleeding, easy bruising Physical Exam Vital Signs: Temp Pulse Resp BP Pulse Ox 97.6 F 110 H 19 112/71 89 L 11/10/18 07:18 11/10/18 07:18 11/10/18 07:18 11/10/18 07:18 11/10/18 07:18 Intake & Output 11/09/18 11/10/18 11/11/18 06:59 06:59 06:59 Intake Total 1000 572 Output Total 850 2100 Balance 150 -1528 Weight 79.7 kg 76.8 kg General appearance: PRESENT: no acute distress, well-developed, well-nourished Head exam: PRESENT: atraumatic, normocephalic Eye exam: PRESENT: conjunctiva pink, EOMI, PERRLA. ABSENT: scleral icterus Ear exam: PRESENT: normal external ear exam Mouth exam: PRESENT: moist, tongue midline Neck exam: ABSENT: carotid bruit, JVD, lymphadenopathy, thyromegaly Respiratory exam: PRESENT: clear to auscultation damion. ABSENT: rales, rhonchi, wheezes Cardiovascular exam: PRESENT: RRR. ABSENT: diastolic murmur, rubs, systolic murmur Pulses: PRESENT: normal dorsalis pedis pul Vascular exam: PRESENT: normal capillary refill GI/Abdominal exam: PRESENT: normal bowel sounds, soft. ABSENT: distended, guarding, mass, organolmegaly, rebound, tenderness Rectal exam: PRESENT: deferred Extremities exam: PRESENT: full ROM. ABSENT: calf tenderness, clubbing, pedal edema Neurological exam: PRESENT: alert, awake, oriented to person, oriented to place, oriented to time, oriented to situation, CN II-XII grossly intact. ABSENT: motor sensory deficit Psychiatric exam: PRESENT: appropriate affect, normal mood. ABSENT: homicidal ideation, suicidal ideation Skin exam: PRESENT: dry, intact, warm. ABSENT: cyanosis, rash Results Laboratory Results: 11/10/18 04:40 11/10/18 04:40 11/10/18 11/10/18 04:40 04:40 WBC 49.0 H* RBC 4.48 Hgb 12.7 L Hct 39.6 MCV 89 MCH 28.4 MCHC 32.1 RDW 15.1 H Plt Count 395 Seg Neutrophils % Not Reportable Lymphocytes % Not Reportable Monocytes % Not Reportable Eosinophils % Not Reportable Basophils % Not Reportable Absolute Neutrophils Not Reportable Absolute Lymphocytes Not Reportable Absolute Monocytes Not Reportable Absolute Eosinophils Not Reportable Absolute Basophils Not Reportable Sodium 137.3 Potassium 3.8 Chloride 100 Carbon Dioxide 22 Anion Gap 15 BUN 25 H Creatinine 0.59 Est GFR ( Amer) > 60 Est GFR (Non-Af Amer) > 60 Glucose 95 Calcium 10.6 H Phosphorus 4.2 Magnesium 1.9 Impressions: Chest X-Ray 11/08/18 17:35 IMPRESSION: Stable masses. No acute findings in the chest. KUB X-Ray 11/09/18 00:00 IMPRESSION: Constipation. Status: Image reviewed by me Assessment & Plan - Diagnosis (1) Spinal cord compression due to malignant neoplasm metastatic to spine Is this a current diagnosis for this admission?: Yes Plan: Elements of cord compression, continue with high-dose steroids as well as radiation. He will be here for several days receiving this, hopefully he will improve his mobility. Agree with physical therapy and work with patient. (2) Stage IV squamous cell carcinoma of lung Qualifiers: Laterality: right Qualified Code(s): C34.91 - Malignant neoplasm of unspecified part of right bronchus or lung Is this a current diagnosis for this admission?: Yes Plan: Ultimately would like to consider systemic therapy but he needs to make it through radiation first. We will decide on systemic therapy as an outpatient ultimately. (3) Hospital-acquired pneumonia Is this a current diagnosis for this admission?: Yes Plan: Agree with antibiotic regimen, continue for now. If cultures are negative for 72 hours, we may discontinue the vancomycin. - Time Time Spent: Greater than 70 Minutes
[2018-11-10] MEDS ORDERED: ZOLEDRONIC ACID 4 MG/100 ML RTU IV ONE (09:00)
[2018-11-10] MEDS: DRONABINOL 2.5 MG CAPSULE PO SCH ×2 (09:06→17:39)
[2018-11-10] MEDS: POLYETHYLENE GLYCOL 3350 POWDER 17 GM/1 PACKET PO SCH (09:07)
[2018-11-10] MEDS: GUAIFENESIN 600 MG TABLET.SA PO SCH ×2 (09:07→21:08)
[2018-11-10] MEDS: LIDOCAINE 5% (700 MG) TRANSDERMAL ADH..PATCH TP SCH (09:07)
[2018-11-10] MEDS: DOCUSATE SODIUM 100 MG CAPSULE PO SCH ×2 (09:07→17:39)
[2018-11-10] MEDS: CEFEPIME HCL 2 GM in DEXTROSE 5%-WATER 50 ML IV SCH ×2 (09:56→21:07)
[2018-11-10] MEDS: CHLORPROMAZINE HCL 25 MG TABLET PO PRN (10:02)
[2018-11-10 10:34] LABS: VANCOMYCIN,TROUGH 15.4 ug/mL (5.0-20.0)
[2018-11-10] MEDS: TAMSULOSIN HCL 0.4 MG CAP.SR.24H PO SCH (17:39)
--- NOTE | 2018-11-10 21:21 | PDOC PROGRESS REPORT ---
Subjective Progress Note for:: 11/10/18 Subjective:: Still feels poorly. He is extremely weak. He still has a very congested cough but his cough is so weak that he is unable to produce any mucus. He does exhibit spontaneous plantar and dorsiflexion of his feet. Reason For Visit: PNEUMONIA,METASTATIC LUNG CANCER,BONE CANCER Physical Exam Vital Signs: Temp Pulse Resp BP Pulse Ox 97.7 F 108 H 16 112/75 91 L 11/10/18 10:59 11/10/18 10:59 11/10/18 10:59 11/10/18 10:59 11/10/18 10:59 Intake & Output 11/09/18 11/10/18 11/11/18 06:59 06:59 06:59 Intake Total 1000 572 288 Output Total 850 2100 800 Balance 150 -8268 512 Weight 79.7 kg 76.8 kg General appearance: PRESENT: mild distress, well-developed - Well-developed but very frail appearing 63-year-old patient who looks older than his stated age. Head exam: PRESENT: atraumatic, normocephalic Ear exam: PRESENT: normal external ear exam Mouth exam: PRESENT: moist, tongue midline Respiratory exam: PRESENT: rhonchi - Extremely congested cough with sporadic rhonchi bilaterally, symmetrical, unlabored. ABSENT: accessory muscle use, rales, tachypnea, wheezes Cardiovascular exam: PRESENT: RRR, +S1, +S2 GI/Abdominal exam: PRESENT: normal bowel sounds, soft. ABSENT: distended, tenderness Rectal exam: PRESENT: deferred Gentrourinary exam: PRESENT: indwelling catheter Extremities exam: ABSENT: pedal edema Musculoskeletal exam: PRESENT: other - The patient had increased spontaneous movement of plantar and dorsiflexion of both feet. He still had difficulty voluntarily moving his right foot on command. Neurological exam: PRESENT: awake, oriented to person, oriented to place, oriented to situation. ABSENT: alert - Somewhat lethargic today Psychiatric exam: PRESENT: flat affect. ABSENT: agitated, anxious Focused psych exam: ABSENT: delusional, restlessness Results Laboratory Results: 11/10/18 04:40 11/10/18 09:50 11/10/18 11/10/18 11/10/18 04:40 04:40 09:50 WBC 49.0 H* RBC 4.48 Hgb 12.7 L Hct 39.6 MCV 89 MCH 28.4 MCHC 32.1 RDW 15.1 H Plt Count 395 Seg Neutrophils % Not Reportable Lymphocytes % Not Reportable Monocytes % Not Reportable Eosinophils % Not Reportable Basophils % Not Reportable Absolute Neutrophils Not Reportable Absolute Lymphocytes Not Reportable Absolute Monocytes Not Reportable Absolute Eosinophils Not Reportable Absolute Basophils Not Reportable Sodium 137.3 Potassium 3.8 Chloride 100 Carbon Dioxide 22 Anion Gap 15 BUN 25 H Creatinine 0.59 0.74 Est GFR ( Amer) > 60 > 60 Est GFR (Non-Af Amer) > 60 > 60 Glucose 95 Calcium 10.6 H Phosphorus 4.2 Magnesium 1.9 Impressions: Chest X-Ray 11/08/18 17:35 IMPRESSION: Stable masses. No acute findings in the chest. KUB X-Ray 11/09/18 00:00 IMPRESSION: Constipation. Assessment and Plan - Diagnosis (1) Hospital-acquired pneumonia Is this a current diagnosis for this admission?: Yes Plan: 11/09/2018-the patient was recently hospitalized. I believe it was for work-up for his malignancies. For this reason he will get broad-spectrum aggressive antibiotic therapy with vancomycin and cefepime. He has a very congested cough. A sputum culture has been requested. He will have guaifenesin long-acting tablet as well as guaifenesin with dextromethorphan as needed. 11/10/2018-the patient likely has hospital-acquired pneumonia versus a postobstructive pneumonia. He has extremely congested breath sounds bilaterally lessening the chance of postobstructive as the tumor is on the right side. Because of his systemic weakness he is unable to produce a sputum. We will continue the vancomycin and cefepime for broad coverage. I have ordered an incentive spirometer and flutter valve to try and strengthen his respiratory muscles and loosen secretions. He is on scheduled and as needed guaifenesin. He is maintaining reasonable saturation on room air (2) Spinal cord compression due to malignant neoplasm metastatic to spine Is this a current diagnosis for this admission?: Yes Plan: 11/09/2018-the patient had a bone lesion that is compressing the spinal cord. This is because weakness and abnormal sensation in the patient's legs. He has some spontaneous movement but on command he exhibited no plantar or dorsiflexion of the feet. He could feel gross touch but it was muted compared to his upper extremities. I did not try to ambulate the patient but the reports that he is unable to ambulate. We will continue dexamethasone therapy. I have ordered 8 mg IV every 8 hours. In addition I have asked physical therapy to see the patient. He would benefit from at least passive range of motion to avoid cont ractures and possibly progress based on his response to radiation therapy. 11/10/2018-the patient did have radiation therapy earlier. The high-dose steroids may be causing a decrease in size of the vertebral lesion, versus decreasing inflammation in the cord, but he is exhibiting slightly more spont aneous movement however the change is very limited. He is being seen by Dr. Casas as well. Please see the oncology note. We will continue the steroids at this time. I have asked physical therapy to work with the patient both for active as well as passive range of motion therapy to avoid contractures. (3) Stage IV squamous cell carcinoma of lung Qualifiers: Laterality: right Qualified Code(s): C34.91 - Malignant neoplasm of unspecified part of right bronchus or lung Is this a current diagnosis for this admission?: Yes Plan: 11/09/2018-patient has a right lung mass with adenopathy. Dr. Casas will be seeing the patient. He was slated for radiation therapy. I will defer management to Dr. Casas. He does have adenopathy visible on chest x-ray. Consideration for a postobstructive pneumonia is also given. Broad-spectrum antibiotic therapy should be effective. 11/10/2018-please see Dr. Casas's note for details of treatment plan. Currently, I believe, treatment is focusing on the spinal lesion. (4) Bilateral leg weakness Is this a current diagnosis for this admission?: Yes Plan: 11/09/2018-secondary to cord compression. Management as outlined above. 11/10/2018-as noted above this is secondary to the cord compression. There is a slight suggestion of improved function however physical therapy performed a more detailed examination and work with the patient. Please see their note for increased details. Function is severely limited. (5) Obstipation Is this a current diagnosis for this admission?: Yes Plan: 11/09/2018-the patient reports not having had bowel movement for 1 & 1/2 weeks. I will order a KUB film to get a general idea of volume of retained stool. We will start an aggressive regimen including scheduled and as needed medications both laxatives and stool softeners. Unfortunately we do not have medication for opiate-induced constipation on the formulary. This is likely the cause of the patient's decreased appetite with nausea and nonspecific abdominal discomfort. 11/10/2018-still no evidence of a meaningful bowel movement. I have change the to collect suppository to daily until he has at least 2 significant bowel movements. We may need to change the mag citrate to a daily administration until there is significant bowel movement produced. The alternative would be repeat soapsuds enema until clear. (6) Intractable hiccups Is this a current diagnosis for this admission?: Yes Plan: 11/09/2018-the patient exhibited intractable hiccups. We discussed the potential causes including diaphragm irritation. As there is no one treatment that has proven extremely effective we will offer a trial of oral Thorazine and once the hiccups subside we can discontinue the medication. 11/10/2018-trial of Thorazine seems to have worked. The patient has no hiccups today. (7) Bacteremia due to Gram-positive bacteria Is this a current diagnosis for this admission?: Yes Plan: 11/10/2018-I was notified by the laboratory today that the patient has 2 out of 3 blood cultures sets positive for gram-positive cocci in clusters. The patient is on vancomycin at this time. Await final identification and sensitivities before changing antibiotic therapy. - Time Time Spent with patient: 35 or more minutes Medications reviewed and adjusted accordingly: Yes - Plan Summary Plan Summary: The patient's , Silvia, was called per her request after the patient encounter. We discussed the patient's worsening weakness as well as his inability to cough out any mucus. I explained the use of the incentive spirometer and flutter valve. We also then discussed the new results of positive blood cultures. There is no obvious source at this time but we revie wed the possibility of his pneumonia being a staph or strep organism with subsequent spread to the bloodstream. We will continue to monitor his progress closely.
[2018-11-10] MEDS: BISACODYL 10 MG SUPP.RECT PR SCH (21:42)
[2018-11-10] MEDS: HYDROMORPHONE HCL 2 MG TABLET PO PRN (23:08)
[2018-11-11] MEDS: VANCOMYCIN HCL 1,000 MG in DEXTROSE 5%-WATER 250 ML IV SCH ×3 (02:22→17:41)
[2018-11-11 04:42] LABS: HEMOGLOBIN 12.7 g/dL (13.5-17.0); MEAN CORPUSCULAR HEMOGLOBIN 28.5 pg (27.0-33.4); MEAN CORPUSCULAR HGB CONC 32.7 g/dL (32.0-36.0); MEAN CORPUSCULAR VOLUME 87 fl (80-97); PLATELET COUNT 428 10^3/uL (150-450); RED BLOOD COUNT 4.47 10^6/uL (4.35-5.55); RED CELL DISTRIBUTION WIDTH 15.1 % (11.5-14.0)
[2018-11-11 05:04] LABS: ABSOLUTE LYMPHOCYTES# (MANUAL) 0.6 10^3/uL (0.5-4.7); ABSOLUTE NEUTROPHILS# (MANUAL) 55.6 10^3/uL (1.7-8.2); BASOPHILS % (MANUAL) 0 % (0-2); EOSINOPHILS % (MANUAL) 0 % (0-6); LYMPHOCYTES % (MANUAL) 1 % (13-45); MONOCYTES % (MANUAL) 0 % (3-13); SEGMENTED NEUTROPHILS % (MAN) 99 % (42-78); TOTAL CELLS COUNTED 100
[2018-11-11 05:05] LABS: ANISOCYTOSIS SLIGHT; PLATELET COMMENT ADEQUATE; TOXIC GRANULATION SLIGHT
[2018-11-11 05:06] LABS: WHITE BLOOD COUNT 56.2 10^3/uL (4.0-10.5)
[2018-11-11] MEDS: PANTOPRAZOLE SODIUM 20 MG TABLET.DR PO SCH (05:12)
[2018-11-11] MEDS: HEPARIN SOD (PORCINE) 5,000 UNIT/ML 1 ML SYRINGE SUBCUT SCH ×3 (05:12→21:20)
[2018-11-11] MEDS: DEXAMETHASONE SOD PHOS INJ 10 MG/1 ML VIAL IV SCH ×3 (05:12→21:20)
[2018-11-11] MEDS: HYDROMORPHONE HCL 2 MG TABLET PO PRN ×2 (05:12→11:12)
[2018-11-11] MEDS: BISACODYL 10 MG SUPP.RECT PR SCH ×2 (09:10→11:11)
[2018-11-11] MEDS: POLYETHYLENE GLYCOL 3350 POWDER 17 GM/1 PACKET PO SCH (09:11)
[2018-11-11] MEDS: DRONABINOL 2.5 MG CAPSULE PO SCH ×2 (09:11→17:41)
[2018-11-11] MEDS: CEFEPIME HCL 2 GM in DEXTROSE 5%-WATER 50 ML IV SCH ×2 (09:11→21:20)
[2018-11-11] MEDS: DOCUSATE SODIUM 100 MG CAPSULE PO SCH ×2 (09:11→17:41)
[2018-11-11] MEDS: GUAIFENESIN 600 MG TABLET.SA PO SCH ×2 (09:11→21:20)
[2018-11-11] MEDS: LIDOCAINE 5% (700 MG) TRANSDERMAL ADH..PATCH TP SCH (09:11)
--- NOTE | 2018-11-11 11:02 | PDOC PROGRESS REPORT ---
Subjective Progress Note for:: 11/11/18 Subjective:: Patient is confused today and asks what kind of tool he needs for the job today. Nurses report that he was normal yesterday, but today is more confused. He received Thorazine yesterday x 2 for hiccups and this "knocked him out" per nurses. He tells me that he only has hiccups when the doctors enter the room, but the rest of the time, it doesn't bother him. He states that he received radiation yesterday and they will continue to day and tomorrow. However, I am unsure if this is accurate. RO: no BM. Good appetite. Denies pain. No dyspnea. Reason For Visit: PNEUMONIA,METASTATIC LUNG CANCER,BONE CANCER Physical Exam Vital Signs: Temp Pulse Resp BP Pulse Ox 97.7 F 95 24 H 109/67 93 11/11/18 07:48 11/11/18 07:48 11/11/18 07:48 11/11/18 07:48 11/11/18 07:48 Intake & Output 11/10/18 11/11/18 11/12/18 06:59 06:59 06:59 Intake Total 572 2508 50 Output Total 2100 2650 Balance -1528 -142 50 Weight 76.8 kg 80.2 kg General appearance: PRESENT: well-developed, well-nourished Head exam: PRESENT: normocephalic Respiratory exam: PRESENT: decreased breath sounds, unlabored Cardiovascular exam: PRESENT: RRR Neurological exam: PRESENT: awake, other - pleasantly confused. Focused psych exam: ABSENT: restlessness Skin exam: PRESENT: normal color Results Laboratory Results: 11/11/18 04:15 11/10/18 09:50 11/11/18 04:15 WBC 56.2 H* RBC 4.47 Hgb 12.7 L Hct 39.0 MCV 87 MCH 28.5 MCHC 32.7 RDW 15.1 H Plt Count 428 Seg Neutrophils % Not Reportable Lymphocytes % Not Reportable Monocytes % Not Reportable Eosinophils % Not Reportable Basophils % Not Reportable Absolute Neutrophils Not Reportable Absolute Lymphocytes Not Reportable Absolute Monocytes Not Reportable Absolute Eosinophils Not Reportable Absolute Basophils Not Reportable Impressions: Chest X-Ray 11/08/18 17:35 IMPRESSION: Stable masses. No acute findings in the chest. KUB X-Ray 11/09/18 00:00 IMPRESSION: Constipation. Assessment & Plan - Diagnosis (1) Bacteremia due to Gram-positive bacteria Is this a current diagnosis for this admission?: Yes Plan: On appropriate antibiotics, per primary team. (2) Intractable hiccups Is this a current diagnosis for this admission?: Yes Plan: Will add baclofen PRN to see if this helps without causing too much sedation. (3) Obstipation Is this a current diagnosis for this admission?: Yes Plan: Discused with nursing staff. They will try suppository first, and may need manual disimpaction. (4) Spinal cord compression due to malignant neoplasm metastatic to spine Is this a current diagnosis for this admission?: Yes Plan: On steroids and continue radiation therapy. (5) Stage IV squamous cell carcinoma of lung Qualifiers: Laterality: right Qualified Code(s): C34.91 - Malignant neoplasm of unspecified part of right bronchus or lung Is this a current diagnosis for this admission?: Yes Plan: Must hold off systemic therapy until radiation to the spine has been completed. - Plan Summary Plan Summary: Confusion may be due to steroids, medications, hypoxia, or other cause. Will monitor closely. Consider MRI brain if not already done elsewhere.
[2018-11-11] MEDS: BACLOFEN 10 MG TABLET PO PRN (11:23)
[2018-11-11] MEDS ORDERED: PROMETHAZINE HCL 25 MG TABLET PO PRN (13:55)
[2018-11-11] MEDS: BISACODYL 5 MG TABEC PO PRN (16:08)
[2018-11-11] MEDS: TAMSULOSIN HCL 0.4 MG CAP.SR.24H PO SCH (17:41)
[2018-11-11] MEDS: CHLORPROMAZINE HCL 25 MG TABLET PO PRN (17:49)
--- NOTE | 2018-11-11 19:45 | PDOC PROGRESS REPORT ---
Subjective Progress Note for:: 11/11/18 Subjective:: Patient is slightly confused. He keeps asking me "when is the surgery " Reason For Visit: PNEUMONIA,METASTATIC LUNG CANCER,BONE CANCER Physical Exam Vital Signs: Temp Pulse Resp BP Pulse Ox 98.4 F 105 H 20 116/60 92 11/11/18 11:49 11/11/18 11:49 11/11/18 11:49 11/11/18 11:49 11/11/18 11:49 Intake & Output 11/10/18 11/11/18 11/12/18 06:59 06:59 06:59 Intake Total 572 2508 300 Output Total 2100 2650 Balance -1528 -142 300 Weight 76.8 kg 80.2 kg General appearance: PRESENT: no acute distress, cooperative, well-developed Head exam: PRESENT: atraumatic, normocephalic Ear exam: PRESENT: normal external ear exam Mouth exam: PRESENT: moist Teeth exam: PRESENT: poor dentation Respiratory exam: PRESENT: rhonchi - Occasional rhonchi with congested breath sounds. Significantly better today., symmetrical, unlabored. ABSENT: accessory muscle use, rales, tachypnea, wheezes Cardiovascular exam: PRESENT: RRR, +S1, +S2 GI/Abdominal exam: PRESENT: distended, hypoactive bowel sounds, other - Tympanitic. ABSENT: tenderness Rectal exam: PRESENT: deferred Gentrourinary exam: PRESENT: indwelling catheter Extremities exam: ABSENT: pedal edema Neurological exam: PRESENT: alert, awake, oriented to person, oriented to place. ABSENT: oriented to situation Psychiatric exam: PRESENT: flat affect. ABSENT: agitated, anxious Focused psych exam: ABSENT: delusional, restlessness Results Laboratory Results: 11/11/18 04:15 11/10/18 09:50 11/11/18 04:15 WBC 56.2 H* RBC 4.47 Hgb 12.7 L Hct 39.0 MCV 87 MCH 28.5 MCHC 32.7 RDW 15.1 H Plt Count 428 Seg Neutrophils % Not Reportable Lymphocytes % Not Reportable Monocytes % Not Reportable Eosinophils % Not Reportable Basophils % Not Reportable Absolute Neutrophils Not Reportable Absolute Lymphocytes Not Reportable Absolute Monocytes Not Reportable Absolute Eosinophils Not Reportable Absolute Basophils Not Reportable Impressions: Chest X-Ray 11/08/18 17:35 IMPRESSION: Stable masses. No acute findings in the chest. KUB X-Ray 11/09/18 00:00 IMPRESSION: Constipation. Assessment and Plan - Diagnosis (1) Hospital-acquired pneumonia Is this a current diagnosis for this admission?: Yes Plan: 11/09/2018-the patient was recently hospitalized. I believe it was for work-up for his malignancies. For this reason he will get broad-spectrum aggressive antibiotic therapy with vancomycin and cefepime. He has a very congested cough. A sputum culture has been requested. He will have guaifenesin long-acting tablet as well as guaifenesin with dextromethorphan as needed. 11/10/2018-the patient likely has hospital-acquired pneumonia versus a postobstructive pneumonia. He has extremely congested breath sounds bilaterally lessening the chance of postobstructive as the tumor is on the right side. Because of his systemic weakness he is unable to produce a sputum. We will continue the vancomycin and cefepime for broad coverage. I have ordered an incentive spirometer and flutter valve to try and strengthen his respiratory muscles and loosen secretions. He is on scheduled and as needed guaifenesin. He is maintaining reasonable saturation on room air 11/11/2018-the patient certainly sounds much less congested today. He still has a slightly congested cough. We will continue his current broad-spectrum antibiotics. (2) Spinal cord compression due to malignant neoplasm metastatic to spine Is this a current diagnosis for this admission?: Yes Plan: 11/09/2018-the patient had a bone lesion that is compressing the spinal cord. This is because weakness and abnormal sensation in the patient's legs. He has some spontaneous movement but on command he exhibited no plantar or dorsiflexion of the feet. He could feel gross touch but it was muted compared to his upper extremities. I did not try to ambulate the patient but the reports that he is unable to ambulate. We will continue dexamethasone therapy. I have ordered 8 mg IV every 8 hours. In addition I have asked physical therapy to see the patient. He would benefit from at least passive range of motion to avoid contractures and possibly progress based on his response to radiation therapy. 11/10/2018-the patient did have radiation therapy earlier. The high-dose steroids may be causing a decrease in size of the vertebral lesion, versus decreasing inflammation in the cord, but he is exhibiting slightly more spontaneous movement however the change is very limited. He is being seen by Dr. Casas as well. Please see the oncology note. We will continue the steroids at this time. I have asked physical therapy to work with the patient both for active as well as passive range of motion therapy to avoid contractures. 11/11/2018-please also see Dr. Hodges's note from oncology service. High-dose steroids and radiation therapy to relieve compression on the spinal cord. (3) Stage IV squamous cell carcinoma of lung Qualifiers: Laterality: right Qualified Code(s): C34.91 - Malignant neoplasm of unspecified part of right bronchus or lung Is this a current diagnosis for this admission?: Yes Plan: 11/09/2018-patient has a right lung mass with adenopathy. Dr. Casas will be seeing the patient. He was slated for radiation therapy. I will defer management to Dr. Casas. He does have adenopathy visible on chest x-ray. Consideration for a postobstructive pneumonia is also given. Broad-spectrum antibiotic therapy should be effective. 11/10/2018-please see Dr. Casas's note for details of treatment plan. Currently, I believe, treatment is focusing on the spinal lesion. 11/11/2018-current systemic treatment for the primary lung lesion on hold due to this acute episode. (4) Bilateral leg weakness Is this a current diagnosis for this admission?: Yes Plan: 11/09/2018-secondary to cord compression. Management as outlined above. 11/10/2018-as noted above this is secondary to the cord compression. There is a slight suggestion of improved function however physical therapy performed a more detailed examination and work with the patient. Please see their note for increased details. Function is severely limited. 11/11/2018-secondary to cord compression. No appreciable change from yesterday. Continue current treatment plan. (5) Obstipation Is this a current diagnosis for this admission?: Yes Plan: 11/09/2018-the patient reports not having had bowel movement for 1 & 1/2 weeks. I will order a KUB film to get a general idea of volume of retained stool. We will start an aggressive regimen including scheduled and as needed medications both laxatives and stool softeners. Unfortunately we do not have medication for opiate-induced constipation on the formulary. This is likely the cause of the patient's decreased appetite with nausea and nonspecific abdominal discomfort. 11/10/2018-still no evidence of a meaningful bowel movement. I have change the to collect suppository to daily until he has at least 2 significant bowel movements. We may need to change the mag citrate to a daily administration until there is significant bowel movement produced. The alternative would be repeat soapsuds enema until clear. 11/11/2018-finally the patient passed a small compact stool. Abdominal film was reviewed and there is a large amount of stool in the colon. We will continue an aggressive regimen and if necessary order manual disimpaction. (6) Intractable hiccups Is this a current diagnosis for this admission?: Yes Plan: 11/09/2018-the patient exhibited intractable hiccups. We discussed the potential causes including diaphragm irritation. As there is no one treatment that has proven extremely effective we will offer a trial of oral Thorazine and once the hiccups subside we can discontinue the medication. 11/10/2018-trial of Thorazine seems to have worked. The patient has no hiccups today. 11/11/2018-no hiccups again today however Dr. Hodges's note reflects the fact that the patient only has hiccups when doctors are present. The Thorazine was quite sedating. I have decreased the dose and we will also try baclofen. (7) Bacteremia due to Gram-positive bacteria Is this a current diagnosis for this admission?: Yes Plan: 11/10/2018-I was notified by the laboratory today that the patient has 2 out of 3 blood cultures sets positive for gram-positive cocci in clusters. The patient is on vancomycin at this time. Await final identification and sensitivities before changing antibiotic therapy. 11/11/2018-2 sets of blood cultures with gram-positive cocci. Await final iden tification and sensitivities. We will likely continue current antibiotic therapy for the underlying pneumonia as well. (8) Altered mental status Qualifiers: Altered mental status type: unspecified Qualified Code(s): R41.82 - Altered mental status, unspecified Is this a current diagnosis for this admission?: Yes Plan: 11/11/2018-the patient was somewhat confused today. He kept insisting that he was having surgery. Multiple times a reviewed the necessity of treating the spinal lesion first before anything else. Despite several efforts that reorienting the patient he still continues to ask when his surgery was. The most likely etiology is the steroid therapy however he does have bacteremia and pneumonia. We will continue to monitor the patient and make any changes to the treatment plan that might be beneficial - Time Time Spent with patient: 15-24 minutes Medications reviewed and adjusted accordingly: Yes
[2018-11-12] MEDS: VANCOMYCIN HCL 1,000 MG in DEXTROSE 5%-WATER 250 ML IV SCH ×3 (01:49→17:56)
[2018-11-12] MEDS: HYDROMORPHONE HCL 2 MG TABLET PO PRN ×2 (01:50→15:38)
[2018-11-12] MEDS: DEXAMETHASONE SOD PHOS INJ 10 MG/1 ML VIAL IV SCH ×3 (05:22→21:23)
[2018-11-12] MEDS: HEPARIN SOD (PORCINE) 5,000 UNIT/ML 1 ML SYRINGE SUBCUT SCH ×3 (05:22→21:23)
[2018-11-12] MEDS: PANTOPRAZOLE SODIUM 20 MG TABLET.DR PO SCH (05:22)
[2018-11-12] MEDS: POLYETHYLENE GLYCOL 3350 POWDER 17 GM/1 PACKET PO SCH (09:23)
[2018-11-12] MEDS: CEFEPIME HCL 2 GM in DEXTROSE 5%-WATER 50 ML IV SCH ×2 (09:23→21:21)
[2018-11-12] MEDS: FENTANYL 50 MCG/HR PATCH.TD72 TD SCH (09:25)
[2018-11-12] MEDS: BISACODYL 10 MG SUPP.RECT PR SCH (09:25)
[2018-11-12] MEDS: DRONABINOL 2.5 MG CAPSULE PO SCH ×2 (09:25→17:55)
[2018-11-12] MEDS: GUAIFENESIN 600 MG TABLET.SA PO SCH ×2 (09:25→21:22)
[2018-11-12] MEDS: DOCUSATE SODIUM 100 MG CAPSULE PO SCH ×2 (09:25→17:56)
[2018-11-12] MEDS: LIDOCAINE 5% (700 MG) TRANSDERMAL ADH..PATCH TP SCH (09:28)
--- NOTE | 2018-11-12 09:45 | PDOC PROGRESS REPORT ---
Subjective Progress Note for:: 11/12/18 Subjective:: No significant bowel movement last night. Still has some confusion. Seems very dehydrated. Reason For Visit: PNEUMONIA,METASTATIC LUNG CANCER,BONE CANCER Physical Exam Vital Signs: Temp Pulse Resp BP Pulse Ox 97.7 F 95 20 112/65 93 11/12/18 07:39 11/12/18 07:39 11/12/18 07:39 11/12/18 07:39 11/12/18 07:39 Intake & Output 11/11/18 11/12/18 11/13/18 06:59 06:59 06:59 Intake Total 2508 1785 Output Total 2650 2675 Balance -142 -890 Weight 80.2 kg 79.2 kg General appearance: PRESENT: no acute distress, cooperative, well-developed Head exam: PRESENT: atraumatic, normocephalic Eye exam: PRESENT: conjunctiva pink. ABSENT: scleral icterus Ear exam: PRESENT: normal external ear exam Mouth exam: PRESENT: dry mucosa, tongue midline Teeth exam: PRESENT: poor dentation Respiratory exam: PRESENT: rhonchi - Faint rhonchi on the left, symmetrical, unlabored. ABSENT: accessory muscle use, tachypnea, wheezes Cardiovascular exam: PRESENT: RRR, +S1, +S2 GI/Abdominal exam: PRESENT: distended - And tympanitic, normal bowel sounds, soft. ABSENT: tenderness Rectal exam: PRESENT: deferred Extremities exam: ABSENT: pedal edema Neurological exam: PRESENT: alert, awake, oriented to person, oriented to place, oriented to situation, motor sensory deficit - Still with spontaneous movement of his feet but unable to flex or extend on command. Still has diminished sensation. Psychiatric exam: PRESENT: appropriate affect, other. ABSENT: agitated, anxious Focused psych exam: ABSENT: delusional, restlessness Results Laboratory Results: 11/11/18 04:15 11/10/18 09:50 Impressions: Chest X-Ray 11/08/18 17:35 IMPRESSION: Stable masses. No acute findings in the chest. KUB X-Ray 11/09/18 00:00 IMPRESSION: Constipation. Assessment and Plan - Diagnosis (1) Hospital-acquired pneumonia Is this a current diagnosis for this admission?: Yes Plan: 11/09/2018-the patient was recently hospitalized. I believe it was for work-up for his malignancies. For this reason he will get broad-spectrum aggressive antibiotic therapy with vancomycin and cefepime. He has a very congested cough. A sputum culture has been requested. He will have guaifenesin long-acting tablet as well as guaifenesin with dextromethorphan as needed. 11/10/2018-the patient likely has hospital-acquired pneumonia versus a postobstructive pneumonia. He has extremely congested breath sounds bilaterally lessening the chance of postobstructive as the tumor is on the right side. Because of his systemic weakness he is unable to produce a sputum. We will continue the vancomycin and cefepime for broad coverage. I have ordered an incentive spirometer and flutter valve to try and strengthen his respiratory mu scles and loosen secretions. He is on scheduled and as needed guaifenesin. He is maintaining reasonable saturation on room air 11/11/2018-the patient certainly sounds much less congested today. He still has a slightly congested cough. We will continue his current broad-spectrum antibiotics. November 12, 2018-the patient is resting comfortably this morning. He has no audible congested breath sounds and this is good. He is unable to tell me if he appreciates any improvement in his breathing as he still feels "so-so". By auscultation he is improved. We will continue the antibiotics at this time. Unfortunately he has a markedly elevated white blood cell count and this is not an accurate indicator of resolution of infectious process and he is on the high- dose steroids. (2) Spinal cord compression due to malignant neoplasm metastatic to spine Is this a current diagnosis for this admission?: Yes Plan: 11/09/2018-the patient had a bone lesion that is compressing the spinal cord. This is because weakness and abnormal sensation in the patient's legs. He has some spontaneous movement but on command he exhibited no plantar or dorsiflexion of the feet. He could feel gross touch but it was muted compared to his upper extremities. I did not try to ambulate the patient but the reports that he is unable to ambulate. We will continue dexamethasone therapy. I have ordered 8 mg IV every 8 hours. In addition I have asked physical therapy to see the patient. He would benefit from at least passive range of motion to avoid contractures and possibly progress based on his response to radiation therapy. 11/10/2018-the patient did have radiation therapy earlier. The high-dose steroids may be causing a decrease in size of the vertebral lesion, versus decreasing inflammation in the cord, but he is exhibiting slightly more spontaneous movement however the change is very limited. He is being seen by Dr. Casas as well. Please see the oncology note. We will continue the steroids at this time. I have asked physical therapy to work with the patient both for active as well as passive range of motion therapy to avoid contractures. 11/11/2018-please also see Dr. Hodges's note from oncology service. High-dose stero ids and radiation therapy to relieve compression on the spinal cord. November 12, 2018-appreciate radiation therapy coming in on a Tuesday to treat the patient. We are not sure of the exact time of his treatment. The does have some involuntary movement of the feet but again is unable to voluntarily dors iflex or plantar flex his feet. No improvement in gross sensation. Continue steroids and radiation therapy. Please also see oncology note. (3) Stage IV squamous cell carcinoma of lung Qualifiers: Laterality: right Qualified Code(s): C34.91 - Malignant neoplasm of unspecified part of right bronchus or lung Is this a current diagnosis for this admission?: Yes Plan: 11/09/2018-patient has a right lung mass with adenopathy. Dr. Casas will be seeing the patient. He was slated for radiation therapy. I will defer management to Dr. Casas. He does have adenopathy visible on chest x-ray. Consideration for a postobstructive pneumonia is also given. Broad-spectrum antibiotic therapy should be effective. 11/10/2018-please see Dr. Casas's note for details of treatment plan. Currently, I believe, treatment is focusing on the spinal lesion. 11/11/2018-current systemic treatment for the primary lung lesion on hold due to this acute episode. November 12, 2018-no active treatment at this time. There is always a possibility of a postobstructive pneumonia but this was not obvious on chest x-ray. Continue to monitor. Please also see oncology note for any change in treatment plan. (4) Bilateral leg weakness Is this a current diagnosis for this admission?: Yes Plan: 11/09/2018-secondary to cord compression. Management as outlined above. 11/10/2018-as noted above this is secondary to the cord compression. There is a slight suggestion of improved function however physical therapy performed a more detailed examination and work with the patient. Please see their note for increased details. Function is severely limited. 11/11/2018-secondary to cord compression. No appreciable change from yesterday. Continue current treatment plan. November 12, 2018-secondary to cord compression. Once again appreciate radiation therapy treating the patient on Tuesday. We will continue his steroid therapy as well. (5) Obstipation Is this a current diagnosis for this admission?: Yes Plan: 11/09/2018-the patient reports not having had bowel movement for 1 & 1/2 weeks. I will order a KUB film to get a general idea of volume of retained stool. We will start an aggressive regimen including scheduled and as needed medications both laxatives and stool softeners. Unfortunately we do not have medication for opiate-induced constipation on the formulary. This is likely the cause of the patient's decreased appetite with nausea and nonspecific abdominal discomfort. 11/10/2018-still no evidence of a meaningful bowel movement. I have change the to collect suppository to daily until he has at least 2 significant bowel movements. We may need to change the mag citrate to a daily administration until there is significant bowel movement produced. The alternative would be repeat soapsuds enema until clear. 11/11/2018-finally the patient passed a small compact stool. Abdominal film was reviewed and there is a large amount of stool in the colon. We will continue an aggressive regimen and if necessary order manual disimpaction. November 12, 2018-evidently the patient only had a small bowel movement yesterday. He still clearly has a marked amount of retained stool. In addition, the patient appears to be quite dry. His appetite has been poor. I will give 2 L of IV fluid at 100 mL an hour since dehydration can worsen constipation. We may have to institute a bowel program with digital stimulation daily if there is a possibility of neurogenic bowel. (6) Intractable hiccups Is this a current diagnosis for this admission?: Yes Plan: 11/09/2018-the patient exhibited intractable hiccups. We discussed the potential causes including diaphragm irritation. As there is no one treatment that has proven extremely effective we will offer a trial of oral Thorazine and once the hiccups subside we can discontinue the medication. 11/10/2018-trial of Thorazine seems to have worked. The patient has no hiccups today. 11/11/2018-no hiccups again today however Dr. Hodges's note reflects the fact that the patient only has hiccups when doctors are present. The Thorazine was quite sedating. I have decreased the dose and we will also try baclofen. November 12, 2018-no hiccups today. We will leave the medications available if hiccups develop again. (7) Bacteremia due to Gram-positive bacteria Is this a current diagnosis for this admission?: Yes Plan: 11/10/2018-I was notified by the laboratory today that the patient has 2 out of 3 blood cultures sets positive for gram-positive cocci in clusters. The patient is on vancomycin at this time. Await final identification and sensitivities before changing antibiotic therapy. 11/11/2018-2 sets of blood cultures with gram-positive cocci. Await final identification and sensitivities. We will likely continue current antibiotic therapy for the underlying pneumonia as well. November 12, 2018-continue vancomycin. Once identification and sensitivities are available I can narrow the spectrum of antibiotics. (8) Altered mental status Qualifiers: Altered mental status type: unspecified Qualified Code(s): R41.82 - Altered mental status, unspecified Is this a current diagnosis for this admission?: Yes Plan: 11/11/2018-the patient was somewhat confused today. He kept insisting that he was having surgery. Multiple times a reviewed the necessity of treating the spinal lesion first before anything else. Despite several efforts that reorienting the patient he still continues to ask when his surgery was. The most likely etiology is the steroid therapy however he does have bacteremia and pneumonia. We will continue to monitor the patient and make any changes to the treatment plan that might be beneficial November 12, 2018-the patient does have bacteremia but is also on high-dose steroids. The steroids are the most likely contributing factor however the bacteremia cannot be ignored. Antibiotics can also cause encephalopathy/confusion. We will continue to monitor for progress and adjust treatment plan accordingly. - Time Time Spent with patient: 15-24 minutes Medications reviewed and adjusted accordingly: Yes
[2018-11-12] MEDS ORDERED: MINERAL OIL ENEMA 133 ML PR ONE (11:00)
[2018-11-12] MEDS: BISACODYL 5 MG TABEC PO PRN (17:56)
[2018-11-12] MEDS: MAGNESIUM CITRATE 296 ML BOTTLE PO PRN (17:56)
[2018-11-12] MEDS: TAMSULOSIN HCL 0.4 MG CAP.SR.24H PO SCH (17:57)
[2018-11-12] MEDS: NORMAL SALINE 1000 ML 1,000 ML IV PRN (18:14)
[2018-11-13] MEDS: VANCOMYCIN HCL 1,000 MG in DEXTROSE 5%-WATER 250 ML IV SCH ×3 (01:24→17:03)
[2018-11-13] MEDS: NORMAL SALINE 1000 ML 1,000 ML IV PRN (05:12)
[2018-11-13] MEDS: HEPARIN SOD (PORCINE) 5,000 UNIT/ML 1 ML SYRINGE SUBCUT SCH ×3 (05:13→21:21)
[2018-11-13] MEDS: DEXAMETHASONE SOD PHOS INJ 10 MG/1 ML VIAL IV SCH ×3 (05:13→21:21)
[2018-11-13] MEDS: PANTOPRAZOLE SODIUM 20 MG TABLET.DR PO SCH (05:13)
[2018-11-13 05:28] LABS: HEMATOCRIT 37.1 % (37.9-51.0); HEMOGLOBIN 12.1 g/dL (13.5-17.0); MEAN CORPUSCULAR HEMOGLOBIN 28.5 pg (27.0-33.4); MEAN CORPUSCULAR HGB CONC 32.5 g/dL (32.0-36.0); MEAN CORPUSCULAR VOLUME 88 fl (80-97); PLATELET COUNT 418 10^3/uL (150-450); RED BLOOD COUNT 4.23 10^6/uL (4.35-5.55); RED CELL DISTRIBUTION WIDTH 15.1 % (11.5-14.0)
[2018-11-13 05:51] LABS: ALANINE AMINOTRANSFERASE 96 U/L (21-72); ALBUMIN 3.3 g/dL (3.5-5.0); ALKALINE PHOSPHATASE 217 U/L (38-126); ANION GAP 11 (5-19); ASPARTATE AMINO TRANSFERASE 29 U/L (17-59); BILIRUBIN,DIRECT 0.3 mg/dL (0.0-0.4); BILIRUBIN,TOTAL 0.4 mg/dL (0.2-1.3); BLOOD UREA NITROGEN 31 mg/dL (7-20); CALCIUM 8.4 mg/dL (8.4-10.2); CARBON DIOXIDE 25 mmol/L (22-30); CHLORIDE 101 mmol/L (98-107); GLUCOSE 112 mg/dL (75-110); POTASSIUM 4.5 mmol/L (3.6-5.0); SODIUM 136.6 mmol/L (137-145); TOTAL PROTEIN 6.5 g/dL (6.3-8.2)
[2018-11-13 06:02] LABS: ABSOLUTE LYMPHOCYTES# (MANUAL) 0.7 10^3/uL (0.5-4.7); ABSOLUTE MONOCYTES # (MANUAL) 0.7 10^3/uL (0.1-1.4); ABSOLUTE NEUTROPHILS# (MANUAL) 64.1 10^3/uL (1.7-8.2); BAND NEUTROPHILS % (MANUAL) 1 % (3-5); BASOPHILS % (MANUAL) 0 % (0-2); EOSINOPHILS % (MANUAL) 0 % (0-6); LYMPHOCYTES % (MANUAL) 1 % (13-45); MONOCYTES % (MANUAL) 1 % (3-13); SEGMENTED NEUTROPHILS % (MAN) 97 % (42-78); TOTAL CELLS COUNTED 100
[2018-11-13 06:08] LABS: PLATELET COMMENT ADEQUATE; RBC MORPHOLOGY COMMENT NORMO-CYTIC/CHROMIC
[2018-11-13 06:09] LABS: WHITE BLOOD COUNT 65.4 10^3/uL (4.0-10.5)
--- NOTE | 2018-11-13 08:12 | PDOC PROGRESS REPORT ---
Subjective Progress Note for:: 11/13/18 Subjective:: Still feels confused at times, involuntary movements only of RLE, nursing also noted a stage I pressure ulcer in the sacral area, and now is being monitored closely. Reason For Visit: PNEUMONIA,METASTATIC LUNG CANCER,BONE CANCER Physical Exam Vital Signs: Temp Pulse Resp BP Pulse Ox 98.3 F 101 H 17 108/68 96 11/13/18 07:30 11/13/18 07:30 11/13/18 07:30 11/13/18 07:30 11/13/18 07:30 Intake & Output 11/12/18 11/13/18 11/14/18 06:59 06:59 06:59 Intake Total 1785 2621 Output Total 2675 2100 Balance -890 521 Weight 79.2 kg 80 kg General appearance: PRESENT: no acute distress, well-developed, well-nourished Head exam: PRESENT: atraumatic, normocephalic Eye exam: PRESENT: conjunctiva pink, EOMI, PERRLA. ABSENT: scleral icterus Ear exam: PRESENT: normal external ear exam Mouth exam: PRESENT: moist, tongue midline Neck exam: ABSENT: carotid bruit, JVD, lymphadenopathy, thyromegaly Respiratory exam: PRESENT: clear to auscultation damion. ABSENT: rales, rhonchi, wheezes Cardiovascular exam: PRESENT: RRR. ABSENT: diastolic murmur, rubs, systolic murmur Pulses: PRESENT: normal dorsalis pedis pul Vascular exam: PRESENT: normal capillary refill GI/Abdominal exam: PRESENT: normal bowel sounds, soft. ABSENT: distended, guarding, mass, organolmegaly, rebound, tenderness Rectal exam: PRESENT: deferred Extremities exam: PRESENT: full ROM. ABSENT: calf tenderness, clubbing, pedal edema Neurological exam: PRESENT: alert, awake, oriented to person, oriented to place, oriented to time, oriented to situation, CN II-XII grossly intact. ABSENT: motor sensory deficit Psychiatric exam: PRESENT: appropriate affect, normal mood. ABSENT: homicidal ideation, suicidal ideation Skin exam: PRESENT: dry, intact, warm. ABSENT: cyanosis, rash Results Laboratory Results: 11/13/18 04:14 11/13/18 04:14 11/13/18 11/13/18 04:14 04:14 WBC 65.4 H* RBC 4.23 L Hgb 12.1 L Hct 37.1 L MCV 88 MCH 28.5 MCHC 32.5 RDW 15.1 H Plt Count 418 Seg Neutrophils % Not Reportable Lymphocytes % Not Reportable Monocytes % Not Reportable Eosinophils % Not Reportable Basophils % Not Reportable Absolute Neutrophils Not Reportable Absolute Lymphocytes Not Reportable Absolute Monocytes Not Reportable Absolute Eosinophils Not Reportable Absolute Basophils Not Reportable Sodium 136.6 L Potassium 4.5 Chloride 101 Carbon Dioxide 25 Anion Gap 11 BUN 31 H Creatinine 0.49 L Est GFR ( Amer) > 60 Est GFR (Non-Af Amer) > 60 Glucose 112 H Calcium 8.4 Magnesium 2.8 H Total Bilirubin 0.4 AST 29 ALT 96 H Alkaline Phosphatase 217 H Total Protein 6.5 Albumin 3.3 L Impressions: Chest X-Ray 11/08/18 17:35 IMPRESSION: Stable masses. No acute findings in the chest. KUB X-Ray 11/09/18 00:00 IMPRESSION: Constipation. Assessment & Plan - Diagnosis (1) Spinal cord compression due to malignant neoplasm metastatic to spine Is this a current diagnosis for this admission?: Yes Plan: Continue with radiation and steroids, probable total radiation treatments 10-15 would be planned. (2) Stage IV squamous cell carcinoma of lung Qualifiers: Laterality: right Qualified Code(s): C34.91 - Malignant neoplasm of unspecified part of right bronchus or lung Is this a current diagnosis for this admission?: Yes Plan: Radiation as above, ultimately would like to try to get to systemic chemotherapy. (3) Hospital-acquired pneumonia Is this a current diagnosis for this admission?: Yes Plan: Continue with current antibiotic regimen, postobstructive pneumonia
[2018-11-13] MEDS: GUAIFENESIN 600 MG TABLET.SA PO SCH ×2 (08:59→21:22)
[2018-11-13] MEDS: LIDOCAINE 5% (700 MG) TRANSDERMAL ADH..PATCH TP SCH (08:59)
[2018-11-13] MEDS: DRONABINOL 2.5 MG CAPSULE PO SCH ×2 (08:59→17:03)
[2018-11-13] MEDS: DOCUSATE SODIUM 100 MG CAPSULE PO SCH ×2 (08:59→17:03)
[2018-11-13] MEDS: POLYETHYLENE GLYCOL 3350 POWDER 17 GM/1 PACKET PO SCH (08:59)
[2018-11-13] MEDS: CEFEPIME HCL 2 GM in DEXTROSE 5%-WATER 50 ML IV SCH ×2 (08:59→21:26)
[2018-11-13] MEDS: BISACODYL 5 MG TABEC PO PRN (11:49)
[2018-11-13] MEDS: MAGNESIUM CITRATE 296 ML BOTTLE PO PRN (11:49)
[2018-11-13] MEDS: ACETAMINOPHEN 325 MG TABLET PO PRN (17:03)
[2018-11-13] MEDS: TAMSULOSIN HCL 0.4 MG CAP.SR.24H PO SCH (17:03)
[2018-11-13] MEDS: PHARMACY COMMUNICATION ORDER MC SCH (21:35)
[2018-11-14] MEDS: VANCOMYCIN HCL 1,000 MG in DEXTROSE 5%-WATER 250 ML IV SCH ×2 (02:33→09:46)
[2018-11-14] MEDS: HEPARIN SOD (PORCINE) 5,000 UNIT/ML 1 ML SYRINGE SUBCUT SCH ×3 (05:20→21:07)
[2018-11-14] MEDS: PANTOPRAZOLE SODIUM 20 MG TABLET.DR PO SCH (05:20)
[2018-11-14] MEDS: DEXAMETHASONE SOD PHOS INJ 10 MG/1 ML VIAL IV SCH ×3 (05:21→21:07)
[2018-11-14 05:36] LABS: ANION GAP 13 (5-19); BLOOD UREA NITROGEN 23 mg/dL (7-20); CALCIUM 8.3 mg/dL (8.4-10.2); CARBON DIOXIDE 22 mmol/L (22-30); CHLORIDE 101 mmol/L (98-107); GLUCOSE 133 mg/dL (75-110); POTASSIUM 4.6 mmol/L (3.6-5.0); SODIUM 135.8 mmol/L (137-145)
--- NOTE | 2018-11-14 09:20 | PDOC PROGRESS REPORT ---
Subjective Progress Note for:: 11/14/18 Subjective:: Still confused, no BM as of yet, instructed nursing to give fleets enema. XRT continued today. asked nursing questions yesterday, I will try to connect with her today. Reason For Visit: PNEUMONIA,METASTATIC LUNG CANCER,BONE CANCER Physical Exam Vital Signs: Temp Pulse Resp BP Pulse Ox 98.2 F 93 18 112/66 92 11/13/18 23:00 11/13/18 23:00 11/13/18 23:00 11/13/18 23:00 11/13/18 23:00 Intake & Output 11/13/18 11/14/18 11/15/18 06:59 06:59 06:59 Intake Total 2621 2500 Output Total 2100 2100 Balance 521 400 Weight 80 kg 81.2 kg General appearance: PRESENT: no acute distress, well-developed, well-nourished Head exam: PRESENT: atraumatic, normocephalic Eye exam: PRESENT: conjunctiva pink, EOMI, PERRLA. ABSENT: scleral icterus Ear exam: PRESENT: normal external ear exam Mouth exam: PRESENT: moist, tongue midline Neck exam: ABSENT: carotid bruit, JVD, lymphadenopathy, thyromegaly Respiratory exam: PRESENT: clear to auscultation damion. ABSENT: rales, rhonchi, wheezes Cardiovascular exam: PRESENT: RRR. ABSENT: diastolic murmur, rubs, systolic murmur Pulses: PRESENT: normal dorsalis pedis pul Vascular exam: PRESENT: normal capillary refill GI/Abdominal exam: PRESENT: normal bowel sounds, soft. ABSENT: distended, guarding, mass, organolmegaly, rebound, tenderness Rectal exam: PRESENT: deferred Extremities exam: PRESENT: full ROM. ABSENT: calf tenderness, clubbing, pedal edema Neurological exam: PRESENT: alert, awake, oriented to person, oriented to place, oriented to time, oriented to situation, CN II-XII grossly intact. ABSENT: motor sensory deficit Psychiatric exam: PRESENT: appropriate affect, normal mood. ABSENT: homicidal ideation, suicidal ideation Skin exam: PRESENT: dry, intact, warm. ABSENT: cyanosis, rash Results Laboratory Results: 11/13/18 04:14 11/14/18 03:58 11/14/18 03:58 Sodium 135.8 L Potassium 4.6 Chloride 101 Carbon Dioxide 22 Anion Gap 13 BUN 23 H Creatinine 0.42 L Est GFR ( Amer) > 60 Est GFR (Non-Af Amer) > 60 Glucose 133 H Calcium 8.3 L Magnesium 2.4 H 11/08/18 23:16 Blood Blood Culture - Final NO GROWTH IN 5 DAYS 11/08/18 21:30 Blood Blood Culture - Final Staphylococcus Epidermidis 11/09/18 09:14 Blood Blood Culture - Final Staphylococcus Hominis Impressions: Chest X-Ray 11/08/18 17:35 IMPRESSION: Stable masses. No acute findings in the chest. KUB X-Ray 11/09/18 00:00 IMPRESSION: Constipation. Assessment & Plan - Diagnosis (1) Spinal cord compression due to malignant neoplasm metastatic to spine Is this a current diagnosis for this admission?: Yes Plan: Cont current therapy (2) Stage IV squamous cell carcinoma of lung Qualifiers: Laterality: right Qualified Code(s): C34.91 - Malignant neoplasm of un specified part of right bronchus or lung Is this a current diagnosis for this admission?: Yes Plan: Hopeful outpt chemo/rx but will decide as outpt (3) Hospital-acquired pneumonia Is this a current diagnosis for this admission?: Yes Plan: BCx+, being covered appropriately but can d/c vanc and maybe decrease spectrum of cefepime per hospitalist team.
[2018-11-14] MEDS: CEFEPIME HCL 2 GM in DEXTROSE 5%-WATER 50 ML IV SCH ×2 (09:44→21:07)
[2018-11-14] MEDS: POLYETHYLENE GLYCOL 3350 POWDER 17 GM/1 PACKET PO SCH (09:46)
[2018-11-14] MEDS: BISACODYL 5 MG TABEC PO PRN (09:47)
[2018-11-14] MEDS: NICOTINE 14 MG/24 HR PATCH.TD24 TD SCH ×2 (09:47→12:52)
[2018-11-14] MEDS: BACLOFEN 10 MG TABLET PO PRN (09:47)
[2018-11-14] MEDS: DRONABINOL 2.5 MG CAPSULE PO SCH ×2 (09:47→17:14)
[2018-11-14] MEDS: LIDOCAINE 5% (700 MG) TRANSDERMAL ADH..PATCH TP SCH (09:47)
[2018-11-14] MEDS: GUAIFENESIN 600 MG TABLET.SA PO SCH ×2 (09:47→21:07)
[2018-11-14] MEDS: DOCUSATE SODIUM 100 MG CAPSULE PO SCH ×2 (09:47→17:14)
[2018-11-14] MEDS: MINERAL OIL ENEMA 133 ML PR PRN (09:51)
[2018-11-14] MEDS: TAMSULOSIN HCL 0.4 MG CAP.SR.24H PO SCH (17:14)
[2018-11-14] MEDS: OXYCODONE HCL IR 5 MG TABLET PO PRN (17:14)
--- NOTE | 2018-11-14 18:09 | PDOC PROGRESS REPORT ---
Subjective Progress Note for:: 11/14/18 Subjective:: The patient was seen on afternoon rounds. He did have radiation treatment earlier this morning. He is noted to be A&Ox4, socially appropriate, conversational, though with intermittent confusion/forgetfulness. Patient reports that he continues to have lower back pain but does not like the way Dilaudid makes him feel. He is agreeable to trial of oxycodone. Patient and nursing reports that he had small bowel movement with relief of constipation today. He otherwise denies fever, chills, chest pain, palpitations, dyspnea, orthopnea, cough, abdominal pain, nausea vomiting and diarrhea. He has no other questions or concerns at this time. No concerns per nursing. Reason For Visit: PNEUMONIA,METASTATIC LUNG CANCER,BONE CANCER Physical Exam Vital Signs: Temp Pulse Resp BP Pulse Ox 98.2 F 93 18 112/66 92 11/13/18 23:00 11/13/18 23:00 11/13/18 23:00 11/13/18 23:00 11/13/18 23:00 Intake & Output 11/13/18 11/14/18 11/15/18 06:59 06:59 06:59 Intake Total 2621 2500 710 Output Total 2100 2100 850 Balance 521 400 -140 Weight 80 kg 81.2 kg General appearance: PRESENT: no acute distress, cooperative, well-developed, well-nourished Head exam: PRESENT: atraumatic, normocephalic Eye exam: PRESENT: conjunctiva pink, EOMI, PERRLA. ABSENT: scleral icterus Ear exam: PRESENT: normal external ear exam Mouth exam: PRESENT: dry mucosa, tongue midline Neck exam: ABSENT: carotid bruit, JVD, lymphadenopathy, thyromegaly Respiratory exam: PRESENT: decreased breath sounds - Bibasilar, rhonchi, symmetrical, unlabored, other - Supplemental oxygen via nasal cannula. ABSENT: rales, wheezes Cardiovascular exam: PRESENT: RRR. ABSENT: diastolic murmur, rubs, systolic murmur Pulses: PRESENT: normal dorsalis pedis pul Vascular exam: PRESENT: normal capillary refill GI/Abdominal exam: PRESENT: normal bowel sounds, soft. ABSENT: distended, guarding, mass, organolmegaly, rebound, tenderness Rectal exam: PRESENT: deferred Extremities exam: ABSENT: calf tenderness, clubbing, pedal edema Neurological exam: PRESENT: alert, awake, oriented to person, oriented to place, oriented to time, oriented to situation, CN II-XII grossly intact, other - Intermittent forgetfulness/confusion. Continues to have spontaneous movement of bilateral feet; does not move on command. He is able to differentiate between Lt and Rt w/ touch.. ABSENT: motor sensory deficit Psychiatric exam: PRESENT: appropriate affect, normal mood. ABSENT: homicidal ideation, suicidal ideation Skin exam: PRESENT: dry, intact, warm. ABSENT: cyanosis, rash Results Laboratory Results: 11/13/18 04:14 11/14/18 03:58 11/14/18 03:58 Sodium 135.8 L Potassium 4.6 Chloride 101 Carbon Dioxide 22 Anion Gap 13 BUN 23 H Creatinine 0.42 L Est GFR ( Amer) > 60 Est GFR (Non-Af Amer) > 60 Glucose 133 H Calcium 8.3 L Magnesium 2.4 H 11/08/18 23:16 Blood Blood Culture - Final NO GROWTH IN 5 DAYS Impressions: Chest X-Ray 11/08/18 17:35 IMPRESSION: Stable masses. No acute findings in the chest. KUB X-Ray 11/09/18 00:00 IMPRESSION: Constipation. Assessment and Plan - Diagnosis (1) Hospital-acquired pneumonia Is this a current diagnosis for this admission?: Yes Plan: Chest x-ray demonstrated right lung mass and right paratracheal adenopathy which was stable; left lung was clear. On admission patient was noted to have leukocytosis (WBCs 55.2) and bilateral rhonchi with a productive cough. Blood cultures are negative for infectious process; found to have contaminants only. Sputum culture was never obtained; patient no longer producing sputum. He does continue to have rhonchi on exam but is maintaining oxygen saturations on room air. He has been afebrile throughout his admission. Have discontinued IV vancomycin today; day #5. Continue cefepime. We will repeat chest x-ray in the morning; if stable will discontinue cefepime. Continue pulmonary toilet with incentive spirometer, flutter valve, position changing. Continue as needed nebulizer treatments. Continue Mucinex twice daily. (2) Altered mental status Qualifiers: Altered mental status type: unspecified Qualified Code(s): R41.82 - Altered mental status, unspecified Is this a current diagnosis for this admission?: Yes Plan: Patient continues to have intermittent periods of confusion/forgetfulness. Likely multifactorial secondary to acute illness (pneumonia), pain, analgesic medications (on fentanyl and Dilaudid; previously opiate sona), and possibly medication related (high-dose steroids and antibiotics). This is less likely to be bacteremia related as his blood cultures have resulted contaminants (staph hominis and staph epidermidis). Have discontinued vancomycin today. Have discontinued Dilaudid; patient requested a "rheumatologist" pain medication. We will trial oxycodone. Supportive care. (3) Bilateral leg weakness Is this a current diagnosis for this admission?: Yes Plan: Secondary to cord compression. The patient is able to identify touch; right versus left, and continues to have spontaneous twitching movements of both feet but unable to move on command. Management as above. (4) Intractable hiccups Is this a current diagnosis for this admission?: Yes Plan: Resolved. Baclofen and Thorazine 3 times daily as needed. (5) Obstipation Is this a current diagnosis for this admission?: Yes Plan: Improved; patient and nurse report small bowel movement today. Continue Colace twice daily. Dulcolax daily as needed. MiraLAX daily. (6) Spinal cord compression due to malignant neoplasm metastatic to spine Is this a current diagnosis for this admission?: Yes Plan: Continue radiation treatment and high-dose steroids. Primary plan per oncology; appreciate Dr. Casas's and Dr. Shore's assistance. PT/OT are consulted. (7) Stage IV squamous cell carcinoma of lung Qualifiers: Laterality: right Qualified Code(s): C34.91 - Malignant neoplasm of unspecified part of right bronchus or lung Is this a current diagnosis for this admission?: Yes Plan: Primary management per oncology; appreciate Dr. Shore and Dr. Casas's assistance. (8) Bacteremia due to Gram-positive bacteria Is this a current diagnosis for this admission?: Yes Plan: Ruled out; final culture results reveal contaminants. 1/4 bottles (1st set) positive for staph epidermidis 1/4 bottle (repeat set) positive for staph hominis. The patient has received 5 days of IV vancomycin; this is discontinued today. We will continue cefepime for treatment of pneumonia; currently on day #5. - Time Time Spent with patient: 35 or more minutes Medications reviewed and adjusted accordingly: Yes
[2018-11-14] MEDS: PHARMACY COMMUNICATION ORDER MC SCH (21:13)
[2018-11-15] MEDS: HEPARIN SOD (PORCINE) 5,000 UNIT/ML 1 ML SYRINGE SUBCUT SCH ×3 (05:11→21:06)
[2018-11-15] MEDS: PANTOPRAZOLE SODIUM 20 MG TABLET.DR PO SCH (05:11)
[2018-11-15] MEDS: DEXAMETHASONE SOD PHOS INJ 10 MG/1 ML VIAL IV SCH ×3 (05:11→21:06)
[2018-11-15 07:01] LABS: HEMOGLOBIN 12.7 g/dL (13.5-17.0); MEAN CORPUSCULAR HEMOGLOBIN 28.7 pg (27.0-33.4); MEAN CORPUSCULAR HGB CONC 32.6 g/dL (32.0-36.0); MEAN CORPUSCULAR VOLUME 88 fl (80-97); PLATELET COUNT 409 10^3/uL (150-450); RED BLOOD COUNT 4.41 10^6/uL (4.35-5.55); RED CELL DISTRIBUTION WIDTH 15.3 % (11.5-14.0)
[2018-11-15 07:19] LABS: ALANINE AMINOTRANSFERASE 80 U/L (21-72); ALBUMIN 3.4 g/dL (3.5-5.0); ALKALINE PHOSPHATASE 223 U/L (38-126); ANION GAP 11 (5-19); ASPARTATE AMINO TRANSFERASE 25 U/L (17-59); BILIRUBIN,DIRECT 0.4 mg/dL (0.0-0.4); BILIRUBIN,TOTAL 0.5 mg/dL (0.2-1.3); BLOOD UREA NITROGEN 24 mg/dL (7-20); CALCIUM 8.7 mg/dL (8.4-10.2); CARBON DIOXIDE 21 mmol/L (22-30); CHLORIDE 104 mmol/L (98-107); GLUCOSE 99 mg/dL (75-110); POTASSIUM 4.5 mmol/L (3.6-5.0); SODIUM 136.2 mmol/L (137-145); TOTAL PROTEIN 6.4 g/dL (6.3-8.2)
--- NOTE | 2018-11-15 08:22 | RADIOLOGY REPORT (SQ) ---
EXAM DESCRIPTION: CHEST SINGLE VIEW COMPLETED DATE/TIME: 11/15/2018 7:54 am REASON FOR STUDY: cough COMPARISON: 11/08/2018. FINDINGS: Single-view chest AP portable semi-upright. Right mid lung zone mass, as before. No change in right paratracheal mass or adenopathy. Lungs otherwise clear. No pneumothorax. TECHNICAL DOCUMENTATION: JOB ID: [id number] Reading location - IP/workstation name: [email or web address]
[2018-11-15 08:29] LABS: WHITE BLOOD COUNT 56.5 10^3/uL (4.0-10.5)
[2018-11-15 08:32] LABS: ABSOLUTE MONOCYTES # (MANUAL) 1.7 10^3/uL (0.1-1.4); ABSOLUTE NEUTROPHILS# (MANUAL) 54.8 10^3/uL (1.7-8.2); BAND NEUTROPHILS % (MANUAL) 2 % (3-5); BASOPHILS % (MANUAL) 0 % (0-2); EOSINOPHILS % (MANUAL) 0 % (0-6); LYMPHOCYTES % (MANUAL) 0 % (13-45); MONOCYTES % (MANUAL) 3 % (3-13); SEGMENTED NEUTROPHILS % (MAN) 95 % (42-78); TOTAL CELLS COUNTED 100
[2018-11-15 08:34] LABS: ANISOCYTOSIS SLIGHT
[2018-11-15 08:35] LABS: PLATELET COMMENT ADEQUATE
[2018-11-15] MEDS: CEFEPIME HCL 2 GM in DEXTROSE 5%-WATER 50 ML IV SCH (09:05)
[2018-11-15] MEDS: POLYETHYLENE GLYCOL 3350 POWDER 17 GM/1 PACKET PO SCH (09:06)
[2018-11-15] MEDS: FENTANYL 50 MCG/HR PATCH.TD72 TD SCH (09:06)
[2018-11-15] MEDS: DRONABINOL 2.5 MG CAPSULE PO SCH ×2 (09:07→17:13)
[2018-11-15] MEDS: GUAIFENESIN 600 MG TABLET.SA PO SCH ×2 (09:07→21:06)
[2018-11-15] MEDS: LIDOCAINE 5% (700 MG) TRANSDERMAL ADH..PATCH TP SCH (09:07)
[2018-11-15] MEDS: DOCUSATE SODIUM 100 MG CAPSULE PO SCH ×2 (09:07→17:13)
[2018-11-15] MEDS: NICOTINE 14 MG/24 HR PATCH.TD24 TD SCH (09:08)
--- NOTE | 2018-11-15 13:00 | PDOC PROGRESS REPORT ---
Subjective Progress Note for:: 11/15/18 Subjective:: He is still confused, otherwise stable, pain seems controlled Reason For Visit: PNEUMONIA,METASTATIC LUNG CANCER,BONE CANCER Physical Exam Vital Signs: Temp Pulse Resp BP Pulse Ox 97.5 F 108 H 16 131/78 H 95 11/14/18 23:19 11/14/18 23:19 11/14/18 23:19 11/14/18 23:19 11/14/18 23:19 Intake & Output 11/14/18 11/15/18 11/16/18 06:59 06:59 06:59 Intake Total 2500 1400 Output Total 2100 3850 Balance 400 -2450 Weight 81.2 kg 81.2 kg General appearance: PRESENT: no acute distress, well-developed, well-nourished Head exam: PRESENT: atraumatic, normocephalic Eye exam: PRESENT: conjunctiva pink, EOMI, PERRLA. ABSENT: scleral icterus Ear exam: PRESENT: normal external ear exam Mouth exam: PRESENT: moist, tongue midline Neck exam: ABSENT: carotid bruit, JVD, lymphadenopathy, thyromegaly Respiratory exam: PRESENT: clear to auscultation damion. ABSENT: rales, rhonchi, wheezes Cardiovascular exam: PRESENT: RRR. ABSENT: diastolic murmur, rubs, systolic murmur Pulses: PRESENT: normal dorsalis pedis pul Vascular exam: PRESENT: normal capillary refill GI/Abdominal exam: PRESENT: normal bowel sounds, soft. ABSENT: distended, guarding, mass, organolmegaly, rebound, tenderness Rectal exam: PRESENT: deferred Extremities exam: PRESENT: full ROM. ABSENT: calf tenderness, clubbing, pedal edema Neurological exam: PRESENT: alert, awake, oriented to person, oriented to place, oriented to time, oriented to situation, CN II-XII grossly intact. ABSENT: motor sensory deficit Psychiatric exam: PRESENT: appropriate affect, normal mood. ABSENT: homicidal ideation, suicidal ideation Skin exam: PRESENT: dry, intact, warm. ABSENT: cyanosis, rash Results Laboratory Results: 11/15/18 06:10 11/15/18 06:10 11/15/18 11/15/18 06:10 06:10 WBC 56.5 H* RBC 4.41 Hgb 12.7 L Hct 39.0 MCV 88 MCH 28.7 MCHC 32.6 RDW 15.3 H Plt Count 409 Seg Neutrophils % Not Reportable Lymphocytes % Not Reportable Monocytes % Not Reportable Eosinophils % Not Reportable Basophils % Not Reportable Absolute Neutrophils Not Reportable Absolute Lymphocytes Not Reportable Absolute Monocytes Not Reportable Absolute Eosinophils Not Reportable Absolute Basophils Not Reportable Sodium 136.2 L Potassium 4.5 Chloride 104 Carbon Dioxide 21 L Anion Gap 11 BUN 24 H Creatinine 0.49 L Est GFR ( Amer) > 60 Est GFR (Non-Af Amer) > 60 Glucose 99 Calcium 8.7 Total Bilirubin 0.5 AST 25 ALT 80 H Alkaline Phosphatase 223 H Total Protein 6.4 Albumin 3.4 L Impressions: KUB X-Ray 11/09/18 00:00 IMPRESSION: Constipation. Assessment & Plan - Diagnosis (1) Spinal cord compression due to malignant neoplasm metastatic to spine Is this a current diagnosis for this admission?: Yes Plan: Con't xrt, should have 7-8 tx left, asked nursing to confirm with xrt how many. Con't steroids at current dosing. (2) Stage IV squamous cell carcinoma of lung Qualifiers: Laterality: right Qualified Code(s): C34.91 - Malignant neoplasm of unspecified part of right bronchus or lung Is this a current diagnosis for this admission?: Yes Plan: Further chemo/rx will depend on his ultimate PS, unless he is able to be less confused and is at least somewhat mobile, unsure of how much rx we can do. (3) Hospital-acquired pneumonia Is this a current diagnosis for this admission?: Yes Plan: cont per hospitalist team
[2018-11-15] MEDS ORDERED: LORAZEPAM INJ 2 MG/1 ML VIAL IV PRN ×2 (13:13→13:30)
--- NOTE | 2018-11-15 15:15 | RADIOLOGY REPORT (SQ) ---
EXAM DESCRIPTION: MRI HEAD COMBO COMPLETED DATE/TIME: 11/15/2018 3:01 pm REASON FOR STUDY: AMS, known metastatic CA COMPARISON: None. TECHNIQUE: Multiplanar imaging includes noncontrasted T1, T2, FLAIR, diffusion with ADC map and post gadolinium contrast T1 sequences. Images stored on PACS. CONTRAST TYPE AND DOSE: 15 mL Dotarem. RENAL FUNCTION: Not indicated. ACR Type II contrast agent associated with few, if any, unconfounded cases of NSF LIMITATIONS: None. FINDINGS: ANATOMY: No anomalies. Normal vascular flow voids. Pituitary fossa normal. CSF SPACES: Normal in size and contour. No hemorrhage. CEREBRUM: Sulci and gyri normal in size and contour. Normal white matter signal on FLAIR imaging. No evidence of hemorrhage, mass, or extraaxial fluid collection. No abnormal enhancement post contrast. POSTERIOR FOSSA: No signal alteration. No hemorrhage. No edema, masses, or mass effect. Internal roger tory canals, cerebellopontine angles, mastoids normal. No enhancing lesions. No abnormal enhancement post contrast. DIFFUSION IMAGING: Negative for acute or subacute infarction. ORBITS: No masses. Globes normal. PARANASAL SINUSES: No fluid levels. Mucosa normal. OTHER: No other significant finding. IMPRESSION: NORMAL MRI OF THE BRAIN WITHOUT AND WITH INTRAVENOUS GADOLINIUM CONTRAST. EVIDENCE OF ACUTE STROKE: NO. TECHNICAL DOCUMENTATION: JOB ID: [id number]- All Rights Reserved Reading location - IP/workstation name: [email or web address]
[2018-11-15] MEDS: TAMSULOSIN HCL 0.4 MG CAP.SR.24H PO SCH (17:13)
--- NOTE | 2018-11-15 17:47 | PDOC PROGRESS REPORT ---
Subjective Progress Note for:: 11/15/18 Subjective:: The patient was seen on morning rounds. He is noted to be A&Ox4, socially appropriate, conversational, though with intermittent confusion/forgetfulness. The patient tells me that he no longer wants to do radiation treatments, however when prompted to explain what his thoughts are, he tells me "you gave me cancer, and now you want to give me more with radiation." Unfortunately, the patient's continued mild confusion limits his ability to participate in care decision making. He denies fever, chills, chest pain, palpitations, dyspnea, orthopnea, cough, abdominal pain, nausea vomiting and diarrhea. He does report continued constipation. He has no other questions or concerns at this time. No concerns per nursing. Reason For Visit: PNEUMONIA,METASTATIC LUNG CANCER,BONE CANCER Physical Exam Vital Signs: Temp Pulse Resp BP Pulse Ox 97.7 F 113 H 18 109/80 95 11/15/18 15:32 11/15/18 15:32 11/15/18 15:32 11/15/18 15:32 11/15/18 15:32 Intake & Output 11/14/18 11/15/18 11/16/18 06:59 06:59 06:59 Intake Total 2500 1400 Output Total 2100 3850 Balance 400 -2450 Weight 81.2 kg 81.2 kg General appearance: PRESENT: no acute distress, well-developed, well-nourished Head exam: PRESENT: atraumatic, normocephalic Eye exam: PRESENT: conjunctiva pink, EOMI, PERRLA. ABSENT: scleral icterus Ear exam: PRESENT: normal external ear exam Mouth exam: PRESENT: moist, tongue midline Neck exam: ABSENT: carotid bruit, JVD, lymphadenopathy, thyromegaly Respiratory exam: PRESENT: decreased breath sounds - Bibasilar, rhonchi - Throughout, symmetrical, unlabored, other - Supplemental oxygen via nasal cannula. ABSENT: rales, wheezes Cardiovascular exam: PRESENT: RRR. ABSENT: diastolic murmur, rubs, systolic murmur Pulses: PRESENT: normal dorsalis pedis pul Vascular exam: PRESENT: normal capillary refill GI/Abdominal exam: PRESENT: normal bowel sounds, soft. ABSENT: distended, guarding, mass, organolmegaly, rebound, tenderness Rectal exam: PRESENT: deferred Extremities exam: ABSENT: calf tenderness, clubbing, full ROM, pedal edema Neurological exam: PRESENT: alert, awake, oriented to person, oriented to place, CN II-XII grossly intact, other - Worsened confusion today. Limited spontaneous movement noted to right foot only today, unable to differentiate/identify palpation. No intentional movements to bilateral lower extremities observed today.. ABSENT: oriented to time, oriented to situation, motor sensory deficit Psychiatric exam: PRESENT: agitated, normal mood. ABSENT: homicidal ideation, suicidal ideation Skin exam: PRESENT: dry, warm. ABSENT: cyanosis, rash Results Laboratory Results: 11/15/18 06:10 11/15/18 06:10 11/15/18 11/15/18 06:10 06:10 WBC 56.5 H* RBC 4.41 Hgb 12.7 L Hct 39.0 MCV 88 MCH 28.7 MCHC 32.6 RDW 15.3 H Plt Count 409 Seg Neutrophils % Not Reportable Lymphocytes % Not Reportable Monocytes % Not Reportable Eosinophils % Not Reportable Basophils % Not Reportable Absolute Neutrophils Not Reportable Absolute Lymphocytes Not Reportable Absolute Monocytes Not Reportable Absolute Eosinophils Not Reportable Absolute Basophils Not Reportable Sodium 136.2 L Potassium 4.5 Chloride 104 Carbon Dioxide 21 L Anion Gap 11 BUN 24 H Creatinine 0.49 L Est GFR ( Amer) > 60 Est GFR (Non-Af Amer) > 60 Glucose 99 Calcium 8.7 Total Bilirubin 0.5 AST 25 ALT 80 H Alkaline Phosphatase 223 H Total Protein 6.4 Albumin 3.4 L Impressions: KUB X-Ray 11/09/18 00:00 IMPRESSION: Constipation. Head MRI 11/15/18 00:00 IMPRESSION: NORMAL MRI OF THE BRAIN WITHOUT AND WITH INTRAVENOUS GADOLINIUM CONTRAST. EVIDENCE OF ACUTE STROKE: NO. Assessment and Plan - Diagnosis (1) Hospital-acquired pneumonia Is this a current diagnosis for this admission?: Yes Plan: Resolved. Chest x-ray demonstrated right lung mass and right paratracheal adenopathy which was stable; left lung was clear. On admission patient was noted to have leukocytosis (WBCs 55.2) and bilateral rhonchi with a productive cough. Blood cultures are negative for infectious process; found to have contaminants only. Sputum culture was never obtained; patient no longer producing sputum. Repeat chest x-ray today is negative for acute findings. He does continue to have rhonchi on exam but is maintaining oxygen saturations on room air. He has been afebrile throughout his admission. Have discontinued IV vancomycin; received 5 days of therapy. Have discontinued cefepime today; received 6 days of therapy. Continue pulmonary toilet with incentive spirometer, flutter valve, position changing. Continue as needed nebulizer treatments. Continue Mucinex twice daily. (2) Altered mental status Qualifiers: Altered mental status type: unspecified Qualified Code(s): R41.82 - Altered mental status, unspecified Is this a current diagnosis for this admission?: Yes Plan: Patient continues to have intermittent periods of confusion/forgetfulness; somewhat worsened today. Likely multifactorial secondary to acute illness (pneumonia), pain, analgesic medications, and possibly medication related (high-dose steroids and antibiotics). This is less likely to be bacteremia related as his blood cultures have resulted contaminants (staph hominis and staph epidermidis). MRI of the head with contrast was benign. Have discontinued vancomycin and cefepime. Have discontinued Dilaudid; patient requested a "fisher weir" pain medication. We will trial oxycodone. Supportive care. (3) Bilateral leg weakness Is this a current diagnosis for this admission?: Yes Plan: Secondary to cord compression. Appears somewhat worsened today, however, patient is also noted to have inc reased confusion. It is possible that his inability to identify touch or follow commands today is related to his mental status. Management as above. Discussed with Dr. Casas today; will need to discuss with the her ability to care for the patient at home versus SNF placement. (4) Intractable hiccups Is this a current diagnosis for this admission?: Yes Plan: Resolved. Baclofen and Thorazine 3 times daily as needed. (5) Obstipation Is this a current diagnosis for this admission?: Yes Plan: Improved; patient and nurse report small bowel movement yesterday. Continue Colace twice daily. Dulcolax daily as needed. MiraLAX daily. Fleets enema daily as needed (6) Spinal cord compression due to malignant neoplasm metastatic to spine Is this a current diagnosis for this admission?: Yes Plan: Continue radiation treatment and high-dose steroids. Per Dr. Casas; patient to receive 6 more radiation treatments. Primary plan per oncology; appreciate Dr. Casas's and Dr. Shore's assistance. PT/OT are consulted. (7) Stage IV squamous cell carcinoma of lung Qualifiers: Laterality: right Qualified Code(s): C34.91 - Malignant neoplasm of unspecified part of right bronchus or lung Is this a current diagnosis for this admission?: Yes Plan: Primary management per oncology; appreciate Dr. Shore and Dr. Casas's assistance. (8) Bacteremia due to Gram-positive bacteria Is this a current diagnosis for this admission?: Yes Plan: Ruled out; final culture results reveal contaminants. 1/4 bottles (1st set) positive for staph epidermidis 1/4 bottle (repeat set) positive for staph hominis. The patient has received 5 days of IV vancomycin; this is discontinued yesterday. Cefepime is discontinued on day #6. - Time Time Spent with patient: 25-34 minutes Medications reviewed and adjusted accordingly: Yes Anticipated discharge: Home with Homehealth - vs SNF
[2018-11-15] MEDS: PHARMACY COMMUNICATION ORDER MC SCH (21:07)
[2018-11-16] MEDS: HEPARIN SOD (PORCINE) 5,000 UNIT/ML 1 ML SYRINGE SUBCUT SCH ×3 (05:20→21:08)
[2018-11-16] MEDS: DEXAMETHASONE SOD PHOS INJ 10 MG/1 ML VIAL IV SCH (05:20)
[2018-11-16] MEDS: PANTOPRAZOLE SODIUM 20 MG TABLET.DR PO SCH (05:21)
[2018-11-16 06:41] LABS: HEMATOCRIT 40.5 % (37.9-51.0); MEAN CORPUSCULAR HEMOGLOBIN 28.5 pg (27.0-33.4); MEAN CORPUSCULAR HGB CONC 32.1 g/dL (32.0-36.0); MEAN CORPUSCULAR VOLUME 89 fl (80-97); PLATELET COUNT 408 10^3/uL (150-450); RED BLOOD COUNT 4.55 10^6/uL (4.35-5.55); RED CELL DISTRIBUTION WIDTH 15.6 % (11.5-14.0)
[2018-11-16 06:54] LABS: ANION GAP 12 (5-19); BLOOD UREA NITROGEN 25 mg/dL (7-20); CALCIUM 9.4 mg/dL (8.4-10.2); CARBON DIOXIDE 21 mmol/L (22-30); CHLORIDE 104 mmol/L (98-107); GLUCOSE 101 mg/dL (75-110); POTASSIUM 4.9 mmol/L (3.6-5.0); SODIUM 136.9 mmol/L (137-145)
[2018-11-16 07:44] LABS: WHITE BLOOD COUNT 57.5 10^3/uL (4.0-10.5)
--- NOTE | 2018-11-16 08:26 | PDOC PROGRESS REPORT ---
Subjective Progress Note for:: 11/16/18 Subjective:: No acute events overnight, still confused, MRI of the brain is negative for any metastasis or any changes. Reason For Visit: PNEUMONIA,METASTATIC LUNG CANCER,BONE CANCER Physical Exam Vital Signs: Temp Pulse Resp BP Pulse Ox 97.2 F 123 H 16 113/80 94 11/15/18 23:12 11/15/18 23:12 11/15/18 23:12 11/15/18 23:12 11/15/18 23:12 Intake & Output 11/15/18 11/16/18 11/17/18 06:59 06:59 06:59 Intake Total 1400 530 Output Total 3850 2200 Balance -2450 -1670 Weight 81.2 kg 81.2 kg General appearance: PRESENT: no acute distress, well-developed, well-nourished Head exam: PRESENT: atraumatic, normocephalic Eye exam: PRESENT: conjunctiva pink, EOMI, PERRLA. ABSENT: scleral icterus Ear exam: PRESENT: normal external ear exam Mouth exam: PRESENT: moist, tongue midline Neck exam: ABSENT: carotid bruit, JVD, lymphadenopathy, thyromegaly Respiratory exam: PRESENT: clear to auscultation damion. ABSENT: rales, rhonchi, wheezes Cardiovascular exam: PRESENT: RRR. ABSENT: diastolic murmur, rubs, systolic murmur Pulses: PRESENT: normal dorsalis pedis pul Vascular exam: PRESENT: normal capillary refill GI/Abdominal exam: PRESENT: normal bowel sounds, soft. ABSENT: distended, guarding, mass, organolmegaly, rebound, tenderness Rectal exam: PRESENT: deferred Extremities exam: PRESENT: full ROM. ABSENT: calf tenderness, clubbing, pedal edema Neurological exam: PRESENT: alert, awake, oriented to person, oriented to place, oriented to time, oriented to situation, CN II-XII grossly intact. ABSENT: motor sensory deficit Psychiatric exam: PRESENT: appropriate affect, normal mood. ABSENT: homicidal ideation, suicidal ideation Skin exam: PRESENT: dry, intact, warm. ABSENT: cyanosis, rash Results Laboratory Results: 11/16/18 05:28 11/16/18 05:28 11/15/18 11/16/18 11/16/18 06:10 05:28 05:28 WBC 56.5 H* 57.5 H* RBC 4.41 4.55 Hgb 12.7 L 13.0 L Hct 39.0 40.5 MCV 88 89 MCH 28.7 28.5 MCHC 32.6 32.1 RDW 15.3 H 15.6 H Plt Count 409 408 Seg Neutrophils % Not Reportable Lymphocytes % Not Reportable Monocytes % Not Reportable Eosinophils % Not Reportable Basophils % Not Reportable Absolute Neutrophils Not Reportable Absolute Lymphocytes Not Reportable Absolute Monocytes Not Reportable Absolute Eosinophils Not Reportable Absolute Basophils Not Reportable Sodium 136.9 L Potassium 4.9 Chloride 104 Carbon Dioxide 21 L Anion Gap 12 BUN 25 H Creatinine 0.47 L Est GFR ( Amer) > 60 Est GFR (Non-Af Amer) > 60 Glucose 101 Calcium 9.4 Impressions: KUB X-Ray 11/09/18 00:00 IMPRESSION: Constipation. Head MRI 11/15/18 00:00 IMPRESSION: NORMAL MRI OF THE BRAIN WITHOUT AND WITH INTRAVENOUS GADOLINIUM CONTRAST. EVIDENCE OF ACUTE STROKE: NO. Assessment & Plan - Diagnosis (1) Spinal cord compression due to malignant neoplasm metastatic to spine Is this a current diagnosis for this admission?: Yes Plan: Still with no function back, continue with completion of radiation and steroids (2) Stage IV squamous cell carcinoma of lung Qualifiers: Laterality: right Qualified Code(s): C34.91 - Malignant neoplasm of unspecified part of right bronchus or lung Is this a current diagnosis for this admission?: Yes Plan: Need to speak with , will need to figure out situation after radiation is completed (3) Hospital-acquired pneumonia Is this a current diagnosis for this admission?: Yes Plan: Continue per hospitalist team
[2018-11-16] MEDS ORDERED: BISACODYL 10 MG SUPP.RECT PR ONE (08:31)
[2018-11-16] MEDS: BISACODYL 5 MG TABEC PO PRN (08:55)
[2018-11-16] MEDS: DRONABINOL 2.5 MG CAPSULE PO SCH (09:05)
[2018-11-16] MEDS: DOCUSATE SODIUM 100 MG CAPSULE PO SCH ×2 (09:05→17:08)
[2018-11-16] MEDS: POLYETHYLENE GLYCOL 3350 POWDER 17 GM/1 PACKET PO SCH (09:06)
[2018-11-16] MEDS: LIDOCAINE 5% (700 MG) TRANSDERMAL ADH..PATCH TP SCH (09:06)
[2018-11-16] MEDS: GUAIFENESIN 600 MG TABLET.SA PO SCH ×2 (09:06→21:08)
[2018-11-16] MEDS: OXYCODONE HCL IR 5 MG TABLET PO PRN ×2 (09:11→20:55)
[2018-11-16] MEDS: NICOTINE 14 MG/24 HR PATCH.TD24 TD SCH (09:12)
[2018-11-16] MEDS ORDERED: DEXAMETHASONE SOD PHOSPHATE INJ 4 MG/1 ML VIAL IV SCH (12:00)
[2018-11-16] MEDS: MINERAL OIL ENEMA 133 ML PR PRN (13:20)
--- NOTE | 2018-11-16 16:43 | ADVANCED CARE ---
- Diagnosis (1) Hospital-acquired pneumonia Diagnosis Current: Yes (2) Altered mental status Diagnosis Current: Yes (3) Bilateral leg weakness Diagnosis Current: Yes (4) Intractable hiccups Diagnosis Current: Yes (5) Obstipation Diagnosis Current: Yes (6) Spinal cord compression due to malignant neoplasm metastatic to spine Diagnosis Current: Yes (7) Stage IV squamous cell carcinoma of lung Diagnosis Current: Yes (8) Bacteremia due to Gram-positive bacteria Diagnosis Current: Yes Attendance: Patient's , Silvia Doss Resuscitation Status: Do Not Resuscitate Discussion: We discussed the patient's diagnoses of metastatic lung cancer with bone metastasis resulting and spinal cord impingement and functional paraplegia. We further discussed the patient's expressed desires to go home with hospice services. Although the patient is confused, he is able to communicate desired wishes and has refused radiation treatments for 2 days in a row. Patient's also tells me that he has requested to go home every day for the previous 3 days to " outside under my tree." We discussed the option of a formal capacity screening to evaluate whether or n ot the patient continues to have full capacity for self determination and medical decision making versus following the patient's wishes and arranging for home hospice services. Next Patient's indicates that she is aware that the patient would have desired home hospice services even prior to his admission and acute encephalopathy. She requests that arrangements be made for the patient to be discharged home with hospice services tomorrow. She does indicate that she will require hospital bed. Care Planning Goals: Discharge [facility]. Time Spent: 25
--- NOTE | 2018-11-16 16:50 | PDOC PROGRESS REPORT ---
Subjective Progress Note for:: 11/16/18 Subjective:: The patient was seen on morning rounds. He is noted to be A&Ox4, socially appropriate, conversational, though with intermittent confusion/forgetfulness. The patient tells me that he has "wanted to go home for 3 days now" and, although frustrated, tells me that he is pleased that we are now making arrangements to discharge him with hospice. He denies fever, chills, chest pain, palpitations, dyspnea, orthopnea, cough, abdominal pain, nausea vomiting and diarrhea. He has no other questions or concerns at this time. No concerns per nursing. Please see separate ACP note regarding Goals of Care discussion; patient now on hospice services with anticipated discharge home tomorrow. Reason For Visit: PNEUMONIA,METASTATIC LUNG CANCER,BONE CANCER Physical Exam Vital Signs: Temp Pulse Resp BP Pulse Ox 97.2 F 123 H 16 113/80 94 11/15/18 23:12 11/15/18 23:12 11/15/18 23:12 11/15/18 23:12 11/15/18 23:12 Intake & Output 11/15/18 11/16/18 11/17/18 06:59 06:59 06:59 Intake Total 1400 530 Output Total 3850 2200 Balance -2450 -1670 Weight 81.2 kg 81.2 kg General appearance: PRESENT: no acute distress, well-developed, well-nourished - overweight Head exam: PRESENT: atraumatic, normocephalic Eye exam: PRESENT: conjunctiva pink, EOMI, PERRLA. ABSENT: scleral icterus Ear exam: PRESENT: normal external ear exam Mouth exam: PRESENT: moist, tongue midline Neck exam: ABSENT: carotid bruit, JVD, lymphadenopathy, thyromegaly Respiratory exam: PRESENT: prolonged expiratory phas, rhonchi, symmetrical, unlabored. ABSENT: rales, wheezes Cardiovascular exam: PRESENT: RRR, +S1, +S2. ABSENT: diastolic murmur, rubs, systolic murmur Pulses: PRESENT: normal dorsalis pedis pul Vascular exam: PRESENT: normal capillary refill GI/Abdominal exam: PRESENT: normal bowel sounds, soft. ABSENT: distended, guarding, mass, organolmegaly, rebound, tenderness Rectal exam: PRESENT: deferred Extremities exam: ABSENT: calf tenderness, clubbing, pedal edema Neurological exam: PRESENT: alert, awake, oriented to person, oriented to place, CN II-XII grossly intact, other - Pleasantly confused. ABSENT: oriented to time, oriented to situation, motor sensory deficit Psychiatric exam: PRESENT: appropriate affect, normal mood. ABSENT: homicidal ideation, suicidal ideation Skin exam: PRESENT: dry, intact, warm. ABSENT: cyanosis, rash Results Laboratory Results: 11/16/18 05:28 11/16/18 05:28 11/16/18 11/16/18 05:28 05:28 WBC 57.5 H* RBC 4.55 Hgb 13.0 L Hct 40.5 MCV 89 MCH 28.5 MCHC 32.1 RDW 15.6 H Plt Count 408 Sodium 136.9 L Potassium 4.9 Chloride 104 Carbon Dioxide 21 L Anion Gap 12 BUN 25 H Creatinine 0.47 L Est GFR ( Amer) > 60 Est GFR (Non-Af Amer) > 60 Glucose 101 Calcium 9.4 Impressions: KUB X-Ray 11/09/18 00:00 IMPRESSION: Constipation. Head MRI 11/15/18 00:00 IMPRESSION: NORMAL MRI OF THE BRAIN WITHOUT AND WITH INTRAVENOUS GADOLINIUM CONTRAST. EVIDENCE OF ACUTE STROKE: NO. Assessment and Plan - Diagnosis (1) Hospital-acquired pneumonia Is this a current diagnosis for this admission?: Yes Plan: Resolved. Chest x-ray demonstrated right lung mass and right paratracheal adenopathy which was stable; left lung was clear. On admission patient was noted to have leukocytosis (WBCs 55.2) and bilateral rhonchi with a productive cough. Blood cultures are negative for infectious process; found to have contaminants only. Sputum culture was never obtained; patient no longer producing sputum. Repeat chest x-ray today is negative for acute findings. He does continue to have rhonchi on exam but is maintaining oxygen saturations on room air. He has been afebrile throughout his admission. Have discontinued IV vancomycin; received 5 days of therapy. Have discontinued cefepime today; received 6 days of therapy. Continue pulmonary toilet with incentive spirometer, flutter valve, position changing. Continue as needed nebulizer treatments. Continue Mucinex twice daily. (2) Altered mental status Qualifiers: Altered mental status type: unspecified Qualified Code(s): R41.82 - Altered mental status, unspecified Is this a current diagnosis for this admission?: Yes Plan: Patient continues to have intermittent periods of confusion/forgetfulness; waxes and wanes. More clear today. Likely multifactorial secondary to acute illness (pneumonia), pain, analgesic medications, and possibly medication related (high-dose steroids and antibiotics). This is less likely to be bacteremia related as his blood cultures have resulted contaminants (staph hominis and staph epidermidis). MRI of the head with contrast was benign. Have discontinued vancomycin and cefepime. Supportive care. (3) Bilateral leg weakness Is this a current diagnosis for this admission?: Yes Plan: Unchanged. Secondary to cord compression. Patient now refusing radiation treatments. Discussed with patient's and Dr. Casas today; patient to d/c home tomorrow with hospice services. (4) Intractable hiccups Is this a current diagnosis for this admission?: Yes Plan: Resolved. Baclofen and Thorazine 3 times daily as needed. (5) Obstipation Is this a current diagnosis for this admission?: Yes Plan: Improved; patient and nurse report small bowel movement today. Continue Colace twice daily. Dulcolax daily as needed. MiraLAX daily. Fleets enema daily as needed (6) Spinal cord compression due to malignant neoplasm metastatic to spine Is this a current diagnosis for this admission?: Yes Plan: Discussed with patient's and Dr. Casas today; patient to d/c [place] tomorrow with hospice services. (7) Stage IV squamous cell carcinoma of lung Qualifiers: Laterality: right Qualified Code(s): C34.91 - Malignant neoplasm of unspecified part of right bronchus or lung Is this a current diagnosis for this admission?: Yes Plan: Discussed with patient's and Dr. Casas today; patient to d/c home tomorrow with hospice services. (8) Bacteremia due to Gram-positive bacteria Is this a current diagnosis for this admission?: Yes Plan: Ruled out; final culture results reveal contaminants. 1/4 bottles (1st set) positive for staph epidermidis 1/4 bottle (repeat set) positive for staph hominis. The patient has received 5 days of IV vancomycin; this is discontinued yesterday. Cefepime is discontinued on day #6. - Time Time Spent with patient: 25-34 minutes Medications reviewed and adjusted accordingly: Yes Anticipated discharge: Hospice Within: within 24 hours
[2018-11-16] MEDS: TAMSULOSIN HCL 0.4 MG CAP.SR.24H PO SCH (17:08)
[2018-11-16] MEDS: PHARMACY COMMUNICATION ORDER MC SCH (21:09)
[2018-11-17] MEDS: PANTOPRAZOLE SODIUM 20 MG TABLET.DR PO SCH (06:15)
[2018-11-17] MEDS: HEPARIN SOD (PORCINE) 5,000 UNIT/ML 1 ML SYRINGE SUBCUT SCH (06:15)
[2018-11-17] MEDS: OXYCODONE HCL IR 5 MG TABLET PO PRN ×2 (06:18→10:00)
--- NOTE | 2018-11-17 08:14 | PDOC PROGRESS REPORT ---
Subjective Progress Note for:: 11/17/18 Subjective:: Yesterday with extensive discussions with family as well as patient, he does not want further therapy, thus hospice was consulted and they will be working on getting him home soon. Reason For Visit: PNEUMONIA,METASTATIC LUNG CANCER,BONE CANCER Physical Exam Vital Signs: Temp Pulse Resp BP Pulse Ox 97.3 F 109 H 16 99/71 L 95 11/16/18 23:18 11/16/18 23:18 11/16/18 23:18 11/16/18 23:18 11/16/18 23:18 Intake & Output 11/16/18 11/17/18 11/18/18 06:59 06:59 06:59 Intake Total 530 1440 Output Total 2200 3000 Balance -1670 -1560 Weight 81.2 kg 81.2 kg General appearance: PRESENT: no acute distress, well-developed, well-nourished Head exam: PRESENT: atraumatic, normocephalic Eye exam: PRESENT: conjunctiva pink, EOMI, PERRLA. ABSENT: scleral icterus Ear exam: PRESENT: normal external ear exam Mouth exam: PRESENT: moist, tongue midline Neck exam: ABSENT: carotid bruit, JVD, lymphadenopathy, thyromegaly Respiratory exam: PRESENT: clear to auscultation damion. ABSENT: rales, rhonchi, wheezes Cardiovascular exam: PRESENT: RRR. ABSENT: diastolic murmur, rubs, systolic murmur Pulses: PRESENT: normal dorsalis pedis pul Vascular exam: PRESENT: normal capillary refill GI/Abdominal exam: PRESENT: normal bowel sounds, soft. ABSENT: distended, guarding, mass, organolmegaly, rebound, tenderness Rectal exam: PRESENT: deferred Extremities exam: PRESENT: full ROM. ABSENT: calf tenderness, clubbing, pedal edema Neurological exam: PRESENT: alert, awake, oriented to person, oriented to place, oriented to time, oriented to situation, CN II-XII grossly intact. ABSENT: motor sensory deficit Psychiatric exam: PRESENT: appropriate affect, normal mood. ABSENT: homicidal ideation, suicidal ideation Skin exam: PRESENT: dry, intact, warm. ABSENT: cyanosis, rash Results Laboratory Results: 11/16/18 05:28 11/16/18 05:28 Impressions: KUB X-Ray 11/09/18 00:00 IMPRESSION: Constipation. Head MRI 11/15/18 00:00 IMPRESSION: NORMAL MRI OF THE BRAIN WITHOUT AND WITH INTRAVENOUS GADOLINIUM CONTRAST. EVIDENCE OF ACUTE STROKE: NO. Assessment & Plan - Diagnosis (1) Spinal cord compression due to malignant neoplasm metastatic to spine Is this a current diagnosis for this admission?: Yes Plan: No further treatment planned, hospice (2) Stage IV squamous cell carcinoma of lung Qualifiers: Laterality: right Qualified Code(s): C34.91 - Malignant neoplasm of uns pecified part of right bronchus or lung Is this a current diagnosis for this admission?: Yes Plan: No further treatment plan, hospice (3) Hospital-acquired pneumonia Is this a current diagnosis for this admission?: Yes
[2018-11-17 08:32] VITALS: BP 95/65
--- NOTE | 2018-11-17 09:47 | PDOC DISCHARGE SUMMARY ---
General - Admit/Disc Date/PCP Admission Date/Primary Care Provider: 11/09/18 12:59 Discharge Date: 11/17/18 - Discharge Diagnosis (1) Hospital-acquired pneumonia Is this a current diagnosis for this admission?: Yes Summary: Resolved. Chest x-ray demonstrated right lung mass and right paratracheal adenopathy which was stable; left lung was clear. On admission patient was noted to have leukocytosis (WBCs 55.2) and bilateral rhonchi with a productive cough. Blood cultures are negative for infectious process; found to have contaminants only. Sputum culture was never obtained; patient no longer producing sputum. Repeat chest x-ray is negative for acute findings. Received full course of IV vancomycin and cefepime. Recommend continue attempts at pulmonary toilet with incentive spirometer, flutter valve, position changing. (2) Altered mental status Is this a current diagnosis for this admission?: Yes Summary: Patient continues to have intermittent periods of confusion/forgetfulness; waxes and wanes. More clear today. Likely multifactorial secondary to acute illness (pneumonia), pain, analgesic medications, and possibly medication related (high-dose steroids and antibiotics). This is less likely to be bacteremia related as his blood cultures have resulted contaminants (staph hominis and staph epidermidis). MRI of the head with contrast was benign. (3) Bilateral leg weakness Is this a current diagnosis for this admission?: Yes Summary: Unchanged. Secondary to cord compression. Patient now refusing radiation treatments. [facility] Discharge to home today. (4) Intractable hiccups Is this a current diagnosis for this admission?: Yes Summary: Resolved. (5) Obstipation Is this a current diagnosis for this admission?: Yes Summary: Resolved Recommend aggressive bowel regiment with daily Colace and MiraLAX. Dulcolax suppository every other day to ensure regular bowel movements. (6) Spinal cord compression due to malignant neoplasm metastatic to spine Is this a current diagnosis for this admission?: Yes Summary: Patient declining further radiation treatments. He is discharging home today with home hospice services. (7) Stage IV squamous cell carcinoma of lung Is this a current diagnosis for this admission?: Yes Summary: Followed by Dr. Casas. Patient has elected to discharge to home with home hospice services. (8) Bacteremia due to Gram-positive bacteria Is this a current diagnosis for this admission?: Yes Summary: Ruled out; final culture results reveal contaminants. 1/4 bottles (1st set) positive for staph epidermidis 1/4 bottle (repeat set) positive for staph hominis. - Additional Information Resuscitation Status: Do Not Resuscitate Discharge Diet: As Tolerated, Regular Discharge Activity: Bedrest Prescriptions: Baclofen [Baclofen 10 mg Tablet] 10 mg PO TIDP PRN #12 tablet PRN Reason: Muscle Spasms Bisacodyl [Dulcolax 5 mg Tablet] 10 mg PO DAILYP PRN #14 tabec PRN Reason: constipation Docusate Sodium [Colace 100 mg Capsule] 100 mg PO BID #60 capsule Lidocaine [Lidoderm 5% (700 mg) Transdermal Patch] 1 patch TP DAILY #30 adh..patch Nicotine [Nicoderm 14 mg/24 Hr Transdermal Patch] 1 each TD DAILY #30 patch.td24 Pantoprazole Sodium [Protonix [address] Tablet] 20 mg PO Q6AM #30 tablet.dr Polyethylene Glycol 3350 [Miralax Powder 17 gm/Packet] 17 gm PO DAILY #30 powd.pack Home Medications: Dexamethasone [Decadron 4 mg Tablet] 4 mg PO TID 11/09/18 Dronabinol 5 mg PO BID 11/09/18 Fentanyl [Duragesic 50 Mcg/Hr Transdermal Patch] 1 each TD Q3D 11/09/18 Hydromorphone HCl [Dilaudid] 4 mg PO Q6HP PRN 11/09/18 Ibuprofen [Motrin 800 mg Tablet] 800 mg PO DAILYP PRN 11/09/18 Lidocaine [Ztlido] 1 each TP DAILY 11/09/18 Tamsulosin HCl [Flomax 0.4 mg Cap.sr] 0.4 mg PO DAILY 11/09/18 Acetaminophen [Tylenol 325 mg Tablet] 650 mg PO Q4HP PRN tablet 11/17/18 Baclofen [Baclofen 10 mg Tablet] 10 mg PO TIDP PRN #12 tablet 11/17/18 Bisacodyl [Dulcolax 5 mg Tablet] 10 mg PO DAILYP PRN #14 tabec 11/17/18 Docusate Sodium [Colace 100 mg Capsule] 100 mg PO BID #60 capsule 11/17/18 Lidocaine [Lidoderm 5% (700 mg) Transdermal Patch] 1 patch TP DAILY #30 adh..patch 11/17/18 Nicotine [Nicoderm 14 mg/24 Hr Transdermal Patch] 1 each TD DAILY #30 patch.td24 11/17/18 Pantoprazole Sodium [Protonix [address] Tablet] 20 mg PO Q6AM #30 tablet.dr 11/17/18 Polyethylene Glycol 3350 [Miralax Powder 17 gm/Packet] 17 gm PO DAILY #30 powd.pack 11/17/18 History of Present Illness History of Present Illness: LUANN NORTON JR is a 63 year old male Physical Exam Vital Signs: Temp Pulse Resp BP Pulse Ox 97.4 F 129 H 17 95/65 L 92 11/17/18 07:57 11/17/18 07:57 11/17/18 07:57 11/17/18 07:57 11/17/18 07:57 Intake & Output 11/16/18 11/17/18 11/18/18 06:59 06:59 06:59 Intake Total 530 1440 Output Total 2200 3000 Balance -1670 -1560 Weight 81.2 kg 81.2 kg General appearance: PRESENT: no acute distress, cooperative, well-developed, well-nourished - Overweight Head exam: PRESENT: atraumatic, normocephalic Eye exam: PRESENT: conjunctiva pink, EOMI, PERRLA. ABSENT: scleral icterus Ear exam: PRESENT: normal external ear exam Mouth exam: PRESENT: moist, tongue midline Teeth exam: PRESENT: poor dentation Neck exam: ABSENT: carotid bruit, JVD, lymphadenopathy, thyromegaly Respiratory exam: PRESENT: clear to auscultation damion, symmetrical, unlabored. ABSENT: rales, rhonchi, wheezes Cardiovascular exam: PRESENT: RRR, +S1, +S2. ABSENT: diastolic murmur, rubs, systolic murmur Pulses: PRESENT: +1 pedal pulses bilateral Vascular exam: PRESENT: normal capillary refill GI/Abdominal exam: PRESENT: normal bowel sounds, soft. ABSENT: distended, guarding, mass, organolmegaly, rebound, tenderness Rectal exam: PRESENT: deferred Gentrourinary exam: PRESENT: indwelling catheter Extremities exam: ABSENT: calf tenderness, clubbing, full ROM - Patient reports sensation to both lower extremities, noted to have spontaneous/twitching movements to bilateral feet, however, is unable to demonstrate any voluntary movement to bilateral lower extremities., pedal edema Neurological exam: PRESENT: alert, awake, oriented to person, oriented to place, oriented to time, oriented to situation, CN II-XII grossly intact, other - Tech nically oriented x4 and conversationally appropriate, though slightly confused (improved from yesterday).. ABSENT: motor sensory deficit Psychiatric exam: PRESENT: appropriate affect, normal mood. ABSENT: homicidal ideation, suicidal ideation Skin exam: PRESENT: dry, intact, warm. ABSENT: cyanosis, rash Results Laboratory Results: 11/16/18 05:28 11/16/18 05:28 Impressions: KUB X-Ray 11/09/18 00:00 IMPRESSION: Constipation. Head MRI 11/15/18 00:00 IMPRESSION: NORMAL MRI OF THE BRAIN WITHOUT AND WITH INTRAVENOUS GADOLINIUM CONTRAST. EVIDENCE OF ACUTE STROKE: NO. Qualifiers - * PATIENT BEING DISCHARGED WITH ANY OF THE FOLLOWING DIAGNOSIS: No Acute Heart Failure Is this a Heart Failure Patient?: No Plan Discharge Plan: Discharge to home with hospice services. Time Spent: Greater than 30 Minutes
[2018-11-17] MEDS: NICOTINE 14 MG/24 HR PATCH.TD24 TD SCH (09:56)
[2018-11-17] MEDS: POLYETHYLENE GLYCOL 3350 POWDER 17 GM/1 PACKET PO SCH (09:59)
[2018-11-17] MEDS: DOCUSATE SODIUM 100 MG CAPSULE PO SCH (10:00)
[2018-11-17] MEDS ORDERED: PREDNISONE 20 MG TABLET PO SCH (10:00)
[2018-11-17] MEDS: LIDOCAINE 5% (700 MG) TRANSDERMAL ADH..PATCH TP SCH (10:00)
[2018-11-17] MEDS: GUAIFENESIN 600 MG TABLET.SA PO SCH (10:00)
== END 2018-11-17 14:10 | disposition hospice, home (50) | DRG 194 ==
LOC: ER 11:37 → EH 11-09 12:59 → 5 11-09 14:55
PROVIDERS: ADMIT Hospitalist; ATTEND Hospitalist
DX: J18.9 Pneumonia, unspecified organism (principal); C79.51 Secondary malignant neoplasm of bone; G95.29 Other cord compression; C34.91 Malignant neoplasm of unspecified part of right bronchus or lung; Z87.891 Personal history of nicotine dependence; K59.00 Constipation, unspecified; R06.6 Hiccough; Z78.1 Physical restraint status; R41.0 Disorientation, unspecified; T36.95XD Adverse effect of unspecified systemic antibiotic, subsequent encounter; T38.0X5A Adverse effect of glucocorticoids and synthetic analogues, initial encounter
CPT/HCPCS: 36415; 70553; 71045; 74018; 80048; 80053; 80202; 81001; 82565; 83735; 84100; 85025; 85027; 85610; 85730; 87040; 87077; 87186; 94667; 94668; 94799; 99285; A9270-GY; A9576; J0692; J1100; J1630; J1644; J2060; J3370; J3489; J3490; J7030; J7060; J7512